=== PATIENT | male | born 1990 | race Caucasian/White ===

== ENCOUNTER 2022-05-20 22:44 | Inpatient (IN) | payer OTHER ==
[2022-05-20 22:57] VITALS: BMI 21.9
[2022-05-21] MEDS ORDERED: morphine SULFATE 4 MG/ML VIAL IVPUSH ONE (00:07)
[2022-05-21] MEDS ORDERED: DICYCLOMINE HCL 10 MG CAPSULE PO ONE (00:07)
[2022-05-21] MEDS ORDERED: morphine CARPU-JECT 4 MG/1 ML DISP.SYRIN IVPUSH ONE (00:07)
[2022-05-21] MEDS ORDERED: ACETAMINOPHEN 1000 MG/100 ML BAG IVPB ONE (00:07)
[2022-05-21] MEDS ORDERED: VANCOMYCIN 1 GM in D5W (PRE-DOCKED) 1,000 MG/250 ML IVPB ONE (00:08)
[2022-05-21] MEDS ORDERED: LACTATED RINGERS SOLUTION 1000 ML INFUS.BAG IV ONE (00:08)
[2022-05-21] MEDS ORDERED: PIPERACILLIN/TAZOB 4.5 GM 4.5 GM in DEXTROSE 5%-WATER 100 ML IVPB ONE (00:08)
[2022-05-21] MEDS ORDERED: morphine SULFATE 4 MG/ML VIAL ONE (00:26)
[2022-05-21] MEDS ORDERED: VANCOMYCIN/WATER FOR INJ (PEG) 1,000 MG/200 ML BAG IVPB ONE (00:27)
[2022-05-21] MEDS ORDERED: PIPERACILLIN/TAZOB 4.5 GM 4.5 GM/100 ML BAG IVPB ONE (00:27)
[2022-05-21 00:50] LABS: HEMATOCRIT 32.1 % (35.4-49); HEMOGLOBIN 10.9 GM/dL (11.7-16.9); MCH 27.8 pg (25.7-33.7); MCHC 33.9 g/dl (32.0-35.9); MEAN CELL VOLUME 82.1 fl (80-96); MEAN PLT VOLUME 7.9 fl (7.5-11.1); PLATELET COUNT 262 10^3/uL (134-434); RDW 15.3 % (11.9-15.9); WHITE BLOOD COUNT 13.4 K/mm3 (4.0-10.0)
[2022-05-21 00:51] LABS: VENOUS BASE EXCESS 4.5 mmol/L (-2-2); VENOUS O2 SATURATION 93.4 % (70-80); VENOUS PCO2 35.9 mmHg (38-52); VENOUS PH 7.505 (7.310-7.410)
[2022-05-21 01:05] LABS: INR 1.38 (0.83-1.09); PROTHROMBIN TIME (PATIENT) 15.9 SEC (9.7-13.0)
[2022-05-21 01:08] LABS: ACTIVATED PTT 29.2 SECONDS (25.2-36.5); CALCIUM 8.4 mg/dL (8.5-10.1)
[2022-05-21 01:09] LABS: ALBUMIN 2.3 g/dl (3.4-5.0); BLOOD UREA NITROGEN 10.8 mg/dL (7-18); MAGNESIUM 1.5 mg/dL (1.8-2.4)
[2022-05-21 01:11] LABS: CREATININE 0.5 mg/dL (0.55-1.3)
[2022-05-21 01:13] LABS: BILIRUBIN,TOTAL 0.7 mg/dL (0.2-1); TOT PROT 7.2 g/dl (6.4-8.2)
[2022-05-21] MEDS ORDERED: KETOROLAC TROMETHAMINE 15 MG/ML VIAL IVPUSH ONE (01:32)
[2022-05-21] MEDS ORDERED: MAGNESIUM SULF 50% (8.12 MEQ/2 ML-1 GM VIAL) IVPB ONE (01:32)
[2022-05-21 01:45] LABS: LACTIC ACID 2.1 mmol/L (0.4-2.0)
[2022-05-21] MEDS ORDERED: MAGNESIUM SULFATE IN WATER 2 GM/50 ML IVPB IVPB ONE (01:53)
[2022-05-21] MEDS ORDERED: KETOROLAC TROMETHAMINE 15 MG/ML VIAL ONE (01:53)
[2022-05-21] MEDS ORDERED: CLINDAMYCIN 900 MG PREMIX IVPB 900 MG/50 ML BAG IVPB ONE ×2 (02:22→03:30)
[2022-05-21] MEDS ORDERED: LORazepam 2 MG/ML SDV VIAL IVPUSH ONE (02:57)
[2022-05-21 04:05] LABS: ANISOCYTOSIS 0; MACROCYTOSIS 0
[2022-05-21] MEDS ORDERED: SODIUM CHLORIDE 0.9% 500 ML INFUS.BAG IV ONE (05:48)
[2022-05-21 09:08] LABS: BASO % 0.1 % (0-2.0); EOS % 0.9 % (0-4.5); HEMATOCRIT 30.8 % (35.4-49); HEMOGLOBIN 10.5 GM/dL (11.7-16.9); LYMPH % 5.2 % (8-40); MCH 28.4 pg (25.7-33.7); MCHC 33.9 g/dl (32.0-35.9); MEAN CELL VOLUME 83.7 fl (80-96); MEAN PLT VOLUME 8.3 fl (7.5-11.1); MONO % 4.5 % (3.8-10.2); NEUT % 89.3 % (42.8-82.8); PLATELET COUNT 248 10^3/uL (134-434); RBC 3.68 M/mm3 (4.00-5.60); RDW 15.4 % (11.9-15.9); WHITE BLOOD COUNT 17.5 K/mm3 (4.0-10.0)
[2022-05-21 09:13] LABS: BLOOD UREA NITROGEN 11.8 mg/dL (7-18); CALCIUM 8.3 mg/dL (8.5-10.1); MAGNESIUM 2.2 mg/dL (1.8-2.4)
[2022-05-21 09:14] LABS: ALBUMIN 1.9 g/dl (3.4-5.0)
[2022-05-21 09:17] LABS: CREATININE 0.5 mg/dL (0.55-1.3)
[2022-05-21 09:18] LABS: BILIRUBIN,TOTAL 0.9 mg/dL (0.2-1); TOT PROT 6.2 g/dl (6.4-8.2)
[2022-05-21] MEDS ORDERED: PIPERACILLIN/TAZOB 3.375 GM 3.375 GM/50 ML BAG IVPB ONE ×3 (13:26→19:36)
[2022-05-21] MEDS: PIPERACILLIN/TAZOB 3.375 GM 3.375 GM in DEXTROSE 5%-WATER - 50 ML IVPB SCH ×2 (13:31→19:40)
[2022-05-21] MEDS: SODIUM CHLORIDE 1,000 ML IV SCH (15:01)
[2022-05-22] MEDS ORDERED: PIPERACILLIN/TAZOB 3.375 GM 3.375 GM/50 ML BAG IVPB ONE (02:14)
[2022-05-22] MEDS: PIPERACILLIN/TAZOB 3.375 GM 3.375 GM in DEXTROSE 5%-WATER - 50 ML IVPB SCH ×3 (02:29→17:18)
[2022-05-22] MEDS: ENOXAPARIN NA (PORCINE) 40 MG/0.4 ML DISP.SYRIN SQ SCH (09:30)
[2022-05-22 10:41] LABS: HEMATOCRIT 32.2 % (35.4-49); MCH 28.4 pg (25.7-33.7); MCHC 34.2 g/dl (32.0-35.9); MEAN CELL VOLUME 83.2 fl (80-96); MEAN PLT VOLUME 8.4 fl (7.5-11.1); PLATELET COUNT 335 10^3/uL (134-434); RBC 3.87 M/mm3 (4.00-5.60); RDW 15.5 % (11.9-15.9); WHITE BLOOD COUNT 18.2 K/mm3 (4.0-10.0)
[2022-05-22 11:18] LABS: ALBUMIN 1.6 g/dl (3.4-5.0); BLOOD UREA NITROGEN 19.6 mg/dL (7-18); CALCIUM 7.8 mg/dL (8.5-10.1); MAGNESIUM 1.9 mg/dL (1.8-2.4)
[2022-05-22 11:21] LABS: CREATININE 0.5 mg/dL (0.55-1.3); PHOSPHOROUS 5.1 mg/dL (2.5-4.9)
[2022-05-22 11:22] LABS: TOT PROT 5.9 g/dl (6.4-8.2)
[2022-05-22 11:23] LABS: BILIRUBIN,TOTAL 0.4 mg/dL (0.2-1)
[2022-05-22 12:10] LABS: ANISOCYTOSIS 0; HELMET CELLS 0; HOWELL-JOLLY BODIES 0; MACROCYTOSIS 0; OVALOCYTE 0; ROULEAU 0; SICKELED CELLS 0; TARGET CELLS 0; TEAR DROP CELLS 0; TOXIC GRANULATION 0
[2022-05-22 13:51] LABS: HIV INTERPRETATION NEGATIVE (NEGATIVE)
[2022-05-22] MEDS: VANCOMYCIN/WATER 1250 MG 1,250 MG/250 ML BAG IVPB SCH (15:00)
[2022-05-22] MEDS: SODIUM CHLORIDE 1,000 ML IV SCH ×2 (15:17→23:27)
[2022-05-23] MEDS: PIPERACILLIN/TAZOB 3.375 GM 3.375 GM in DEXTROSE 5%-WATER - 50 ML IVPB SCH ×2 (03:16→09:44)
[2022-05-23] MEDS ORDERED: ONDANSETRON 4 MG/2 ML VIAL IVPB PRN (08:25)
[2022-05-23] MEDS ORDERED: ACETAMINOPHEN 325 MG TABLET (FP) PO PRN (08:25)
[2022-05-23 09:39] LABS: BASO % 0.2 % (0-2.0); EOS % 0.6 % (0-4.5); HEMATOCRIT 33.5 % (35.4-49); HEMOGLOBIN 11.2 GM/dL (11.7-16.9); LYMPH % 9.8 % (8-40); MCH 27.8 pg (25.7-33.7); MCHC 33.5 g/dl (32.0-35.9); MONO % 5.7 % (3.8-10.2); NEUT % 83.7 % (42.8-82.8); PLATELET COUNT 342 10^3/uL (134-434); RBC 4.03 M/mm3 (4.00-5.60); RDW 15.4 % (11.9-15.9); WHITE BLOOD COUNT 16.4 K/mm3 (4.0-10.0)
[2022-05-23] MEDS: ENOXAPARIN NA (PORCINE) 40 MG/0.4 ML DISP.SYRIN SQ SCH (09:44)
[2022-05-23 09:56] LABS: CALCIUM 7.2 mg/dL (8.5-10.1)
[2022-05-23 09:57] LABS: ALBUMIN 1.6 g/dl (3.4-5.0); BLOOD UREA NITROGEN 17.2 mg/dL (7-18); MAGNESIUM 1.7 mg/dL (1.8-2.4)
[2022-05-23 10:00] LABS: CREATININE 0.6 mg/dL (0.55-1.3); PHOSPHOROUS 3.4 mg/dL (2.5-4.9)
[2022-05-23 10:01] LABS: TOT PROT 5.8 g/dl (6.4-8.2)
[2022-05-23 10:02] LABS: BILIRUBIN,TOTAL 0.4 mg/dL (0.2-1)
[2022-05-23] MEDS ORDERED: MAGNESIUM 1GM/D5W 100ML - 100 ML IVPB IVPB ONE (10:50)
[2022-05-23] MEDS: VANCOMYCIN/WATER 1250 MG 1,250 MG/250 ML BAG IVPB SCH (14:13)
[2022-05-23] MEDS: CEFTRIAXONE 2 GM in DEXTROSE 5%-WATER 100 ML IVPB SCH (17:20)
[2022-05-24 09:32] LABS: BASO % 0.4 % (0-2.0); EOS % 1.3 % (0-4.5); HEMATOCRIT 34.5 % (35.4-49); HEMOGLOBIN 11.3 GM/dL (11.7-16.9); LYMPH % 12.1 % (8-40); MCH 26.7 pg (25.7-33.7); MCHC 32.7 g/dl (32.0-35.9); MEAN CELL VOLUME 81.7 fl (80-96); MEAN PLT VOLUME 7.8 fl (7.5-11.1); MONO % 7.4 % (3.8-10.2); NEUT % 78.8 % (42.8-82.8); PLATELET COUNT 368 10^3/uL (134-434); RBC 4.23 M/mm3 (4.00-5.60); RDW 15.3 % (11.9-15.9); WHITE BLOOD COUNT 15.2 K/mm3 (4.0-10.0)
[2022-05-24] MEDS: CEFTRIAXONE 2 GM in DEXTROSE 5%-WATER 100 ML IVPB SCH (09:51)
[2022-05-24] MEDS: ENOXAPARIN NA (PORCINE) 40 MG/0.4 ML DISP.SYRIN SQ SCH (09:53)
[2022-05-24 10:02] LABS: CALCIUM 7.8 mg/dL (8.5-10.1)
[2022-05-24 10:03] LABS: ALBUMIN 1.7 g/dl (3.4-5.0)
[2022-05-24 10:04] LABS: BLOOD UREA NITROGEN 13.5 mg/dL (7-18)
[2022-05-24 10:06] LABS: CREATININE 0.5 mg/dL (0.55-1.3)
[2022-05-24 10:08] LABS: BILIRUBIN,TOTAL 0.5 mg/dL (0.2-1); TOT PROT 6.2 g/dl (6.4-8.2)
[2022-05-24] MEDS: HYDROmorphone HCl 2 MG/ML VIAL IVPB PRN ×3 (11:34→20:30)
[2022-05-24 11:57] LABS: MAGNESIUM 1.8 mg/dL (1.8-2.4)
[2022-05-24 12:00] LABS: PHOSPHOROUS 3.3 mg/dL (2.5-4.9)
[2022-05-24] MEDS: VANCOMYCIN/WATER 1250 MG 1,250 MG/250 ML BAG IVPB SCH (14:28)
[2022-05-25] MEDS: HYDROmorphone HCl 2 MG/ML VIAL IVPB PRN ×6 (00:03→22:12)
[2022-05-25] MEDS: ENOXAPARIN NA (PORCINE) 40 MG/0.4 ML DISP.SYRIN SQ SCH (09:08)
[2022-05-25] MEDS: CEFTRIAXONE 2 GM in DEXTROSE 5%-WATER 100 ML IVPB SCH (09:08)
[2022-05-25 10:05] LABS: HEMATOCRIT 34.2 % (35.4-49); HEMOGLOBIN 11.7 GM/dL (11.7-16.9); MCH 28.1 pg (25.7-33.7); MCHC 34.3 g/dl (32.0-35.9); MEAN PLT VOLUME 7.9 fl (7.5-11.1); PLATELET COUNT 432 10^3/uL (134-434); RBC 4.17 M/mm3 (4.00-5.60); RDW 14.8 % (11.9-15.9); WHITE BLOOD COUNT 15.5 K/mm3 (4.0-10.0)
[2022-05-25 10:30] LABS: CALCIUM 7.8 mg/dL (8.5-10.1)
[2022-05-25 10:31] LABS: ALBUMIN 1.8 g/dl (3.4-5.0); MAGNESIUM 1.9 mg/dL (1.8-2.4)
[2022-05-25 10:34] LABS: CREATININE 0.5 mg/dL (0.55-1.3); PHOSPHOROUS 3.6 mg/dL (2.5-4.9)
[2022-05-25 10:35] LABS: BILIRUBIN,TOTAL 0.5 mg/dL (0.2-1); TOT PROT 6.7 g/dl (6.4-8.2)
[2022-05-25 12:42] LABS: ANISOCYTOSIS 2+; MACROCYTOSIS 0; TOXIC GRANULATION 2+
[2022-05-25] MEDS: LIDOCAINE 5% TOPICAL PATCH TP PRN (12:42)
[2022-05-25] MEDS: VANCOMYCIN/WATER 1250 MG 1,250 MG/250 ML BAG IVPB SCH (17:15)
[2022-05-25] MEDS ORDERED: VANCOMYCIN/WATER 2 GRAMS 2,000 MG/400 ML PIGGYBACK IVPB ONE (17:45)
[2022-05-25] MEDS: LIDOCAINE PATCH REMOVAL MC SCH (22:13)
[2022-05-26 02:07] LABS: FIBROSIS SCORE. 0.04 (0.00-0.21); HCV ALPHA 2 MACRO CHART 108 mg/dL (110-276); NECRO.INFLAM ACT.SCORE 0.11 (0.00-0.17); NECROINFLAM. ACTIVITY GRADE A0-No activity (.)
[2022-05-26] MEDS: HYDROmorphone HCl 2 MG/ML VIAL IVPB PRN ×3 (02:10→09:04)
[2022-05-26] MEDS: ENOXAPARIN NA (PORCINE) 40 MG/0.4 ML DISP.SYRIN SQ SCH (09:04)
[2022-05-26] MEDS: LIDOCAINE 5% TOPICAL PATCH TP PRN (09:05)
[2022-05-26] MEDS: CEFTRIAXONE 2 GM in DEXTROSE 5%-WATER 100 ML IVPB SCH (09:08)
[2022-05-26 09:58] LABS: EOS % 2.2 % (0-4.5); HEMATOCRIT 34.7 % (35.4-49); HEMOGLOBIN 11.9 GM/dL (11.7-16.9); MCH 28.3 pg (25.7-33.7); MCHC 34.4 g/dl (32.0-35.9); MEAN CELL VOLUME 82.4 fl (80-96); MEAN PLT VOLUME 7.7 fl (7.5-11.1); MONO % 5.6 % (3.8-10.2); NEUT % 78.2 % (42.8-82.8); PLATELET COUNT 460 10^3/uL (134-434); RBC 4.21 M/mm3 (4.00-5.60); RDW 15.4 % (11.9-15.9)
[2022-05-26 10:25] LABS: ALBUMIN 1.9 g/dl (3.4-5.0); BLOOD UREA NITROGEN 12.4 mg/dL (7-18); CALCIUM 7.7 mg/dL (8.5-10.1); MAGNESIUM 1.9 mg/dL (1.8-2.4)
[2022-05-26 10:26] LABS: PHOSPHOROUS 3.1 mg/dL (2.5-4.9)
[2022-05-26 10:27] LABS: BILIRUBIN,TOTAL 0.3 mg/dL (0.2-1)
[2022-05-26 10:28] LABS: CREATININE 0.5 mg/dL (0.55-1.3)
[2022-05-26] MEDS ORDERED: oxyCODONE HCL 10 MG SUSTAINED ACTING TABLET PO PRN (12:33)
[2022-05-26] MEDS ORDERED: methaDONE HCL 10 MG TABLET PO ONE (12:38)
[2022-05-26] MEDS: DOXYCYCLINE HYCLATE 100 MG CAPSULE PO SCH (17:50)
[2022-05-26] MEDS: oxyCODONE HCL 5 MG TABLET PO PRN (20:06)
[2022-05-26] MEDS: LIDOCAINE PATCH REMOVAL MC SCH (21:07)
[2022-05-27] MEDS: oxyCODONE HCL 5 MG TABLET PO PRN ×2 (04:51→10:08)
[2022-05-27 08:54] LABS: BASO % 0.4 % (0-2.0); EOS % 2.5 % (0-4.5); HEMATOCRIT 32.7 % (35.4-49); HEMOGLOBIN 11.2 GM/dL (11.7-16.9); LYMPH % 13.9 % (8-40); MCH 28.6 pg (25.7-33.7); MCHC 34.3 g/dl (32.0-35.9); MEAN CELL VOLUME 83.2 fl (80-96); MEAN PLT VOLUME 7.7 fl (7.5-11.1); MONO % 5.6 % (3.8-10.2); NEUT % 77.6 % (42.8-82.8); PLATELET COUNT 482 10^3/uL (134-434); RBC 3.93 M/mm3 (4.00-5.60); RDW 15.3 % (11.9-15.9); WHITE BLOOD COUNT 15.8 K/mm3 (4.0-10.0)
[2022-05-27 09:14] LABS: MAGNESIUM 1.9 mg/dL (1.8-2.4)
[2022-05-27 09:17] LABS: CREATININE 0.5 mg/dL (0.55-1.3); PHOSPHOROUS 4.4 mg/dL (2.5-4.9)
[2022-05-27 09:18] LABS: BILIRUBIN,TOTAL 0.5 mg/dL (0.2-1); TOT PROT 7.2 g/dl (6.4-8.2)
[2022-05-27] MEDS: ENOXAPARIN NA (PORCINE) 40 MG/0.4 ML DISP.SYRIN SQ SCH (10:06)
[2022-05-27] MEDS: CEFTRIAXONE 2 GM in DEXTROSE 5%-WATER 100 ML IVPB SCH (10:06)
[2022-05-27] MEDS: DOXYCYCLINE HYCLATE 100 MG CAPSULE PO SCH ×2 (10:07→17:52)
[2022-05-27] MEDS ORDERED: oxyCODONE HCL 5 MG TABLET PO PRN (11:47)
[2022-05-27] MEDS ORDERED: LIDOCAINE VISCOUS 2% ORAL/TOP 15 ML UNIT-DOSE CUP ONE (13:23)
[2022-05-27] MEDS ORDERED: POLYETHYLENE GLYCOL (HEALTHYLAX) 3350 17 GM PACKET PO PRN (14:59)
[2022-05-27] MEDS ORDERED: hydrOXYzine PAMOATE 25 MG CAPSULE (FP) PO PRN (14:59)
[2022-05-27] MEDS ORDERED: ONDANSETRON *ODT* 4 MG TABLET SL PRN (14:59)
[2022-05-27] MEDS ORDERED: BISMUTH SUBSALICYLATE 524 MG/30 ML PO PRN (14:59)
[2022-05-27] MEDS ORDERED: NALOXONE HCL 0.4 MG/ML VIAL IM PRN (14:59)
[2022-05-27] MEDS ORDERED: BENZONATATE 200 MG CAPSULE PO PRN (14:59)
[2022-05-27] MEDS ORDERED: LOPERAMIDE HCL 2 MG CAPSULE PO PRN (14:59)
[2022-05-27] MEDS ORDERED: DICYCLOMINE HCL 10 MG CAPSULE PO PRN (14:59)
[2022-05-27] MEDS ORDERED: MAGNESIUM HYDROX 2400MG/30ML ORAL SUSPENSION 30 ML CUP PO PRN (14:59)
[2022-05-27] MEDS ORDERED: ACETAMINOPHEN 325 MG TABLET (FP) PO PRN (14:59)
[2022-05-27] MEDS ORDERED: NALOXONE HCL (KLOXXADO) 8 MG SPRAY NS PRN (14:59)
[2022-05-27] MEDS ORDERED: BENZOCAINE/MENTHOL (CHLORASEPTIC ) LOZENGE MM PRN (14:59)
[2022-05-27] MEDS ORDERED: METHOCARBAMOL 500 MG TABLET PO PRN (14:59)
[2022-05-27] MEDS ORDERED: guaiFENesin 600 MG TABLET.ER (FP) PO PRN (14:59)
[2022-05-27] MEDS: DULoxetine HCL 30 MG CAPSULE.DR PO SCH (15:55)
[2022-05-27] MEDS ORDERED: methaDONE HCL 10 MG TABLET PO ONE (16:00)
[2022-05-27 19:36] LABS: PH,URINE 5.5 (5.0-8.0); URINE APPEARANCE CLEAR; URINE BILIRUBIN NEGATIVE (NEGATIVE); URINE COLOR YELLOW; URINE GLUCOSE (UA) NEGATIVE (NEGATIVE); URINE KETONE NEGATIVE (NEGATIVE); URINE LEUK ESTERASE NEGATIVE (NEGATIVE); URINE NITRITE NEGATIVE (NEGATIVE); URINE PROTEIN NEGATIVE (NEGATIVE); URINE UROBILINOGEN 0.2 mg/dL (0.2-1.0)
[2022-05-27] MEDS: LIDOCAINE PATCH REMOVAL MC SCH (21:12)
[2022-05-27] MEDS: MELATONIN 5 MG TABLETS PO SCH (21:12)
[2022-05-27 23:19] LABS: COCAINE, UR NEGATIVE (NEGATIVE); PHENCYCLIDINE,URINE NEGATIVE (NEGATIVE); URINE AMPHETAMINES NEGATIVE (NEGATIVE)
[2022-05-27 23:20] LABS: URINE BARBITURATES NEGATIVE (NEGATIVE)
[2022-05-27 23:27] LABS: METHADONE, UR POSITIVE (NEGATIVE); OPIATES, URI POSITIVE (NEGATIVE); URINE BENZODIAZEPINES POSITIVE (NEGATIVE)
[2022-05-28] MEDS: IBUPROFEN 600 MG TABLET (FP) PO PRN (06:53)
[2022-05-28] MEDS: MAG HYDROX/AL HYDROX/SIMETH 30 ML UNIT-DOSE CUP PO PRN ×2 (06:57→11:01)
[2022-05-28 08:48] LABS: BASO % 0.7 % (0-2.0); EOS % 3.6 % (0-4.5); HEMATOCRIT 33.5 % (35.4-49); HEMOGLOBIN 11.3 GM/dL (11.7-16.9); LYMPH % 17.1 % (8-40); MCH 28.2 pg (25.7-33.7); MCHC 33.6 g/dl (32.0-35.9); MEAN CELL VOLUME 84.1 fl (80-96); MEAN PLT VOLUME 7.6 fl (7.5-11.1); MONO % 6.6 % (3.8-10.2); PLATELET COUNT 528 10^3/uL (134-434); RBC 3.98 M/mm3 (4.00-5.60); RDW 15.2 % (11.9-15.9); WHITE BLOOD COUNT 10.9 K/mm3 (4.0-10.0)
[2022-05-28 09:13] LABS: CALCIUM 8.2 mg/dL (8.5-10.1)
[2022-05-28 09:14] LABS: ALBUMIN 1.9 g/dl (3.4-5.0); BLOOD UREA NITROGEN 16.1 mg/dL (7-18); MAGNESIUM 1.9 mg/dL (1.8-2.4)
[2022-05-28 09:17] LABS: CREATININE 0.4 mg/dL (0.55-1.3); PHOSPHOROUS 4.2 mg/dL (2.5-4.9)
[2022-05-28 09:19] LABS: BILIRUBIN,TOTAL 0.5 mg/dL (0.2-1); TOT PROT 7.2 g/dl (6.4-8.2)
[2022-05-28] MEDS: DOXYCYCLINE HYCLATE 100 MG CAPSULE PO SCH ×2 (10:13→17:06)
[2022-05-28] MEDS: DULoxetine HCL 30 MG CAPSULE.DR PO SCH (10:13)
[2022-05-28] MEDS: CEFTRIAXONE 2 GM in DEXTROSE 5%-WATER 100 ML IVPB SCH (10:15)
[2022-05-28] MEDS: ENOXAPARIN NA (PORCINE) 40 MG/0.4 ML DISP.SYRIN SQ SCH (10:15)
[2022-05-28] MEDS: IBUPROFEN 400 MG TABLET (FP) PO PRN (18:02)
[2022-05-28] MEDS: LIDOCAINE PATCH REMOVAL MC SCH (21:38)
[2022-05-28] MEDS: MELATONIN 5 MG TABLETS PO SCH (21:38)
[2022-05-29] MEDS: IBUPROFEN 600 MG TABLET (FP) PO PRN (03:13)
[2022-05-29] MEDS: ENOXAPARIN NA (PORCINE) 40 MG/0.4 ML DISP.SYRIN SQ SCH (09:18)
[2022-05-29] MEDS: DULoxetine HCL 30 MG CAPSULE.DR PO SCH (09:18)
[2022-05-29] MEDS: DOXYCYCLINE HYCLATE 100 MG CAPSULE PO SCH ×2 (09:18→17:07)
[2022-05-29] MEDS: CEFTRIAXONE 2 GM in DEXTROSE 5%-WATER 100 ML IVPB SCH (09:19)
[2022-05-29 09:40] LABS: BASO % 0.6 % (0-2.0); EOS % 3.4 % (0-4.5); HEMATOCRIT 30.3 % (35.4-49); HEMOGLOBIN 10.5 GM/dL (11.7-16.9); LYMPH % 19.7 % (8-40); MCH 28.6 pg (25.7-33.7); MCHC 34.6 g/dl (32.0-35.9); MEAN CELL VOLUME 82.7 fl (80-96); MONO % 6.6 % (3.8-10.2); NEUT % 69.7 % (42.8-82.8); PLATELET COUNT 516 10^3/uL (134-434); RBC 3.67 M/mm3 (4.00-5.60); RDW 15.2 % (11.9-15.9); WHITE BLOOD COUNT 9.2 K/mm3 (4.0-10.0)
[2022-05-29] MEDS ORDERED: methaDONE HCL 10 MG TABLET PO ONE (10:00)
[2022-05-29 10:05] LABS: ALBUMIN 1.9 g/dl (3.4-5.0); BLOOD UREA NITROGEN 15.1 mg/dL (7-18)
[2022-05-29 10:07] LABS: MAGNESIUM 1.7 mg/dL (1.8-2.4)
[2022-05-29 10:08] LABS: CREATININE 0.5 mg/dL (0.55-1.3); PHOSPHOROUS 3.7 mg/dL (2.5-4.9)
[2022-05-29 10:09] LABS: TOT PROT 7.2 g/dl (6.4-8.2)
[2022-05-29 10:12] LABS: BILIRUBIN,TOTAL 0.3 mg/dL (0.2-1)
[2022-05-29] MEDS ORDERED: MAGNESIUM OXIDE 400 MG TABLET (FP) PO ONE (13:00)
[2022-05-29] MEDS: MELATONIN 5 MG TABLETS PO SCH (21:12)
[2022-05-29] MEDS: LIDOCAINE PATCH REMOVAL MC SCH (21:12)
[2022-05-30] MEDS: IBUPROFEN 400 MG TABLET (FP) PO PRN (04:55)
[2022-05-30 08:45] LABS: EOS % 2.2 % (0-4.5); HEMATOCRIT 28.3 % (35.4-49); HEMOGLOBIN 9.9 GM/dL (11.7-16.9); LYMPH % 19.4 % (8-40); MCH 28.6 pg (25.7-33.7); MCHC 35.1 g/dl (32.0-35.9); MEAN CELL VOLUME 81.7 fl (80-96); MEAN PLT VOLUME 6.9 fl (7.5-11.1); MONO % 6.6 % (3.8-10.2); NEUT % 70.8 % (42.8-82.8); PLATELET COUNT 577 10^3/uL (134-434); RBC 3.47 M/mm3 (4.00-5.60); RDW 15.1 % (11.9-15.9)
[2022-05-30 08:57] LABS: CALCIUM 8.1 mg/dL (8.5-10.1)
[2022-05-30 09:01] LABS: CREATININE 0.4 mg/dL (0.55-1.3)
[2022-05-30 09:02] LABS: BILIRUBIN,TOTAL 0.5 mg/dL (0.2-1)
[2022-05-30 09:03] LABS: TOT PROT 7.5 g/dl (6.4-8.2)
[2022-05-30] MEDS: DULoxetine HCL 30 MG CAPSULE.DR PO SCH (11:08)
[2022-05-30] MEDS: DOXYCYCLINE HYCLATE 100 MG CAPSULE PO SCH ×2 (11:08→17:50)
[2022-05-30] MEDS: ENOXAPARIN NA (PORCINE) 40 MG/0.4 ML DISP.SYRIN SQ SCH (11:10)
[2022-05-30] MEDS: CEFTRIAXONE 2 GM in DEXTROSE 5%-WATER 100 ML IVPB SCH (11:10)
[2022-05-30] MEDS: LIDOCAINE PATCH REMOVAL MC SCH (21:11)
[2022-05-30] MEDS: MELATONIN 5 MG TABLETS PO SCH (21:58)
[2022-05-31 09:16] LABS: EOS % 3.1 % (0-4.5); HEMATOCRIT 30.4 % (35.4-49); HEMOGLOBIN 10.5 GM/dL (11.7-16.9); LYMPH % 18.1 % (8-40); MCH 28.7 pg (25.7-33.7); MCHC 34.5 g/dl (32.0-35.9); MEAN PLT VOLUME 7.2 fl (7.5-11.1); MONO % 6.2 % (3.8-10.2); NEUT % 71.6 % (42.8-82.8); PLATELET COUNT 565 10^3/uL (134-434); RBC 3.67 M/mm3 (4.00-5.60); RDW 15.4 % (11.9-15.9); WHITE BLOOD COUNT 8.7 K/mm3 (4.0-10.0)
[2022-05-31 09:43] LABS: ALBUMIN 2.1 g/dl (3.4-5.0); BLOOD UREA NITROGEN 14.3 mg/dL (7-18); CALCIUM 8.2 mg/dL (8.5-10.1)
[2022-05-31 09:46] LABS: CREATININE 0.5 mg/dL (0.55-1.3)
[2022-05-31 09:48] LABS: BILIRUBIN,TOTAL 0.4 mg/dL (0.2-1); TOT PROT 7.8 g/dl (6.4-8.2)
[2022-05-31] MEDS ORDERED: methaDONE HCL 10 MG TABLET PO ONE (10:00)
[2022-05-31] MEDS: DULoxetine HCL 30 MG CAPSULE.DR PO SCH (10:21)
[2022-05-31] MEDS: DOXYCYCLINE HYCLATE 100 MG CAPSULE PO SCH ×2 (10:22→17:44)
[2022-05-31] MEDS: CEFTRIAXONE 2 GM in DEXTROSE 5%-WATER 100 ML IVPB SCH (10:22)
[2022-05-31] MEDS: ENOXAPARIN NA (PORCINE) 40 MG/0.4 ML DISP.SYRIN SQ SCH (10:23)
[2022-05-31] MEDS: IBUPROFEN 600 MG TABLET (FP) PO PRN (10:23)
[2022-05-31] MEDS: LIDOCAINE PATCH REMOVAL MC SCH (21:37)
[2022-06-01] MEDS: MELATONIN 5 MG TABLETS PO SCH ×2 (02:12→22:38)
[2022-06-01] MEDS: IBUPROFEN 600 MG TABLET (FP) PO PRN ×2 (10:00→18:55)
[2022-06-01] MEDS: CEFTRIAXONE 2 GM in DEXTROSE 5%-WATER 100 ML IVPB SCH (10:00)
[2022-06-01] MEDS: DULoxetine HCL 30 MG CAPSULE.DR PO SCH (10:00)
[2022-06-01] MEDS: ENOXAPARIN NA (PORCINE) 40 MG/0.4 ML DISP.SYRIN SQ SCH (10:00)
[2022-06-01] MEDS: DOXYCYCLINE HYCLATE 100 MG CAPSULE PO SCH ×2 (10:00→17:28)
[2022-06-01 11:01] LABS: BASO % 1.1 % (0-2.0); EOS % 2.1 % (0-4.5); HEMATOCRIT 29.4 % (35.4-49); HEMOGLOBIN 10.3 GM/dL (11.7-16.9); LYMPH % 16.3 % (8-40); MCHC 34.8 g/dl (32.0-35.9); MEAN CELL VOLUME 83.2 fl (80-96); MEAN PLT VOLUME 7.3 fl (7.5-11.1); MONO % 4.2 % (3.8-10.2); NEUT % 76.3 % (42.8-82.8); PLATELET COUNT 590 10^3/uL (134-434); RBC 3.54 M/mm3 (4.00-5.60); RDW 15.4 % (11.9-15.9); WHITE BLOOD COUNT 9.8 K/mm3 (4.0-10.0)
[2022-06-01 11:14] LABS: BLOOD UREA NITROGEN 13.8 mg/dL (7-18)
[2022-06-01 11:15] LABS: CALCIUM 8.4 mg/dL (8.5-10.1)
[2022-06-01 11:16] LABS: ALBUMIN 2.2 g/dl (3.4-5.0); MAGNESIUM 1.8 mg/dL (1.8-2.4)
[2022-06-01 11:18] LABS: CREATININE 0.5 mg/dL (0.55-1.3)
[2022-06-01 11:19] LABS: PHOSPHOROUS 3.7 mg/dL (2.5-4.9)
[2022-06-01 11:20] LABS: BILIRUBIN,TOTAL 0.4 mg/dL (0.2-1); TOT PROT 8.2 g/dl (6.4-8.2)
[2022-06-01 22:12] VITALS: RESP 18
[2022-06-01] MEDS: LIDOCAINE PATCH REMOVAL MC SCH (22:38)
[2022-06-02 08:53] LABS: EOS % 1.7 % (0-4.5); HEMATOCRIT 29.4 % (35.4-49); HEMOGLOBIN 10.2 GM/dL (11.7-16.9); LYMPH % 17.1 % (8-40); MCH 28.5 pg (25.7-33.7); MCHC 34.6 g/dl (32.0-35.9); MEAN CELL VOLUME 82.5 fl (80-96); MEAN PLT VOLUME 7.1 fl (7.5-11.1); MONO % 5.4 % (3.8-10.2); NEUT % 74.8 % (42.8-82.8); PLATELET COUNT 607 10^3/uL (134-434); RBC 3.56 M/mm3 (4.00-5.60); RDW 15.4 % (11.9-15.9); WHITE BLOOD COUNT 8.7 K/mm3 (4.0-10.0)
[2022-06-02] MEDS: DULoxetine HCL 30 MG CAPSULE.DR PO SCH (09:16)
[2022-06-02] MEDS: ENOXAPARIN NA (PORCINE) 40 MG/0.4 ML DISP.SYRIN SQ SCH (09:16)
[2022-06-02] MEDS: DOXYCYCLINE HYCLATE 100 MG CAPSULE PO SCH (09:16)
[2022-06-02] MEDS: CEFTRIAXONE 2 GM in DEXTROSE 5%-WATER 100 ML IVPB SCH (09:17)
[2022-06-02] MEDS: MELATONIN 5 MG TABLETS PO SCH (21:24)
[2022-06-02] MEDS: LIDOCAINE PATCH REMOVAL MC SCH (21:25)
[2022-06-02] MEDS: IBUPROFEN 600 MG TABLET (FP) PO PRN (21:31)
[2022-06-03 09:23] LABS: BASO % 2.2 % (0-2.0); EOS % 1.5 % (0-4.5); HEMATOCRIT 29.4 % (35.4-49); HEMOGLOBIN 10.1 GM/dL (11.7-16.9); LYMPH % 16.8 % (8-40); MCH 28.5 pg (25.7-33.7); MCHC 34.3 g/dl (32.0-35.9); MEAN CELL VOLUME 83.1 fl (80-96); MEAN PLT VOLUME 6.8 fl (7.5-11.1); MONO % 6.3 % (3.8-10.2); NEUT % 73.2 % (42.8-82.8); PLATELET COUNT 619 10^3/uL (134-434); RBC 3.54 M/mm3 (4.00-5.60); RDW 15.2 % (11.9-15.9); WHITE BLOOD COUNT 8.8 K/mm3 (4.0-10.0)
[2022-06-03] MEDS: BUPRENORPHINE/NALOXONE 2 MG/0.5 MG FILM PACKET SL SCH (10:09)
[2022-06-03] MEDS: CEFTRIAXONE 2 GM in DEXTROSE 5%-WATER 100 ML IVPB SCH (10:09)
[2022-06-03] MEDS: IBUPROFEN 600 MG TABLET (FP) PO PRN (10:10)
[2022-06-03] MEDS: DULoxetine HCL 30 MG CAPSULE.DR PO SCH (10:10)
[2022-06-03] MEDS: ENOXAPARIN NA (PORCINE) 40 MG/0.4 ML DISP.SYRIN SQ SCH (10:10)
[2022-06-03] MEDS ORDERED: BUPRENORPHINE/NALOXONE 2 MG/0.5 MG FILM PACKET SL ONE (17:16)
[2022-06-03] MEDS: MAG HYDROX/AL HYDROX/SIMETH 30 ML UNIT-DOSE CUP PO PRN (17:37)
[2022-06-03] MEDS: MELATONIN 5 MG TABLETS PO SCH (21:10)
[2022-06-03] MEDS: LIDOCAINE PATCH REMOVAL MC SCH (21:11)
[2022-06-04 09:26] LABS: BASO % 1.1 % (0-2.0); EOS % 3.5 % (0-4.5); HEMATOCRIT 27.4 % (35.4-49); HEMOGLOBIN 9.3 GM/dL (11.7-16.9); LYMPH % 26.8 % (8-40); MCH 28.3 pg (25.7-33.7); MCHC 34.1 g/dl (32.0-35.9); MONO % 7.5 % (3.8-10.2); NEUT % 61.1 % (42.8-82.8); PLATELET COUNT 502 10^3/uL (134-434); RDW 15.8 % (11.9-15.9); WHITE BLOOD COUNT 6.5 K/mm3 (4.0-10.0)
[2022-06-04] MEDS: DULoxetine HCL 30 MG CAPSULE.DR PO SCH (10:29)
[2022-06-04] MEDS: CEFTRIAXONE 2 GM in DEXTROSE 5%-WATER 100 ML IVPB SCH (10:29)
[2022-06-04] MEDS: BUPRENORPHINE/NALOXONE 2 MG/0.5 MG FILM PACKET SL SCH (10:29)
[2022-06-04] MEDS: IBUPROFEN 600 MG TABLET (FP) PO PRN (21:26)
[2022-06-04] MEDS: MAG HYDROX/AL HYDROX/SIMETH 30 ML UNIT-DOSE CUP PO PRN (21:26)
[2022-06-04] MEDS: MELATONIN 5 MG TABLETS PO SCH (21:26)
[2022-06-04] MEDS: LIDOCAINE PATCH REMOVAL MC SCH (21:29)
[2022-06-05] MEDS: BUPRENORPHINE/NALOXONE 2 MG/0.5 MG FILM PACKET SL SCH (09:13)
[2022-06-05] MEDS: DULoxetine HCL 30 MG CAPSULE.DR PO SCH (09:13)
[2022-06-05] MEDS: CEFTRIAXONE 2 GM in DEXTROSE 5%-WATER 100 ML IVPB SCH (09:14)
[2022-06-05 10:13] LABS: BASO % 1.4 % (0-2.0); EOS % 2.9 % (0-4.5); HEMOGLOBIN 10.7 GM/dL (11.7-16.9); LYMPH % 23.3 % (8-40); MCH 28.9 pg (25.7-33.7); MCHC 34.6 g/dl (32.0-35.9); MEAN CELL VOLUME 83.4 fl (80-96); MEAN PLT VOLUME 6.9 fl (7.5-11.1); NEUT % 65.4 % (42.8-82.8); PLATELET COUNT 443 10^3/uL (134-434); RBC 3.71 M/mm3 (4.00-5.60); RDW 15.8 % (11.9-15.9); WHITE BLOOD COUNT 5.7 K/mm3 (4.0-10.0)
[2022-06-05] MEDS: IBUPROFEN 600 MG TABLET (FP) PO PRN (16:37)
[2022-06-05] MEDS ORDERED: BUPRENORPHINE/NALOXONE 2 MG/0.5 MG FILM PACKET SL ONE (18:51)
[2022-06-05] MEDS: MELATONIN 5 MG TABLETS PO SCH (22:04)
[2022-06-05] MEDS: LIDOCAINE PATCH REMOVAL MC SCH (22:05)
[2022-06-06 09:34] LABS: BASO % 0.4 % (0-2.0); EOS % 2.5 % (0-4.5); HEMATOCRIT 26.2 % (35.4-49); HEMOGLOBIN 9.4 GM/dL (11.7-16.9); LYMPH % 24.5 % (8-40); MCH 29.5 pg (25.7-33.7); MCHC 35.9 g/dl (32.0-35.9); MEAN CELL VOLUME 82.3 fl (80-96); MEAN PLT VOLUME 7.4 fl (7.5-11.1); NEUT % 66.6 % (42.8-82.8); PLATELET COUNT 433 10^3/uL (134-434); RBC 3.18 M/mm3 (4.00-5.60); RDW 15.5 % (11.9-15.9); WHITE BLOOD COUNT 6.7 K/mm3 (4.0-10.0)
[2022-06-06] MEDS ORDERED: BUPRENORPHINE/NALOXONE 2 MG/0.5 MG FILM PACKET SL SCH ×2 (10:00→11:41)
[2022-06-06] MEDS ORDERED: BUPRENORPHINE/NALOXONE 8 MG/2 MG FILM PACKET SL SCH (10:00)
[2022-06-06] MEDS: DULoxetine HCL 30 MG CAPSULE.DR PO SCH (10:22)
[2022-06-06] MEDS: IBUPROFEN 600 MG TABLET (FP) PO PRN (10:24)
[2022-06-06] MEDS ORDERED: BUPRENORPHINE/NALOXONE 2 MG/0.5 MG FILM PACKET SL ONE (14:38)
[2022-06-06] MEDS: MELATONIN 5 MG TABLETS PO SCH (21:56)
[2022-06-06] MEDS: LIDOCAINE PATCH REMOVAL MC SCH (21:57)
[2022-06-07] MEDS ORDERED: BUPRENORPHINE/NALOXONE 2 MG/0.5 MG FILM PACKET SL SCH (10:00)
[2022-06-07] MEDS: DULoxetine HCL 30 MG CAPSULE.DR PO SCH (10:04)
[2022-06-07 14:05] VITALS: BP 125/74; PULSE 94; TEMP 98
== END 2022-06-07 12:20 | disposition other institution (70) | DRG 720 ==
LOC: JER 22:44 → JERBED 05-21 01:11 → J6S 05-22 03:35
PROVIDERS: ADMIT Internal Medicine
PROC: B246ZZ4 Ultrasonography of Right and Left Heart, Transesophageal (ICD-10-PCS; principal; 2022-05-27 13:00)
DX: A40.0 Sepsis due to streptococcus, group A (principal); I26.90 Septic pulmonary embolism without acute cor pulmonale; E87.1 Hypo-osmolality and hyponatremia; J18.9 Pneumonia, unspecified organism; F11.23 Opioid dependence with withdrawal; F17.210 Nicotine dependence, cigarettes, uncomplicated; L03.113 Cellulitis of right upper limb; L03.114 Cellulitis of left upper limb; M94.0 Chondrocostal junction syndrome [Tietze]; E88.09 Other disorders of plasma-protein metabolism, not elsewhere classified; Z59.00 Homelessness unspecified
CPT/HCPCS: 0241U-QW; 36415; 71046-TC-FY; 71260-TC; 72070-TC-FY; 72132-TC; 73201-TC-RT; 74177-TC; 80053; 80307; 81003; 82172; 82803; 82977; 83010; 83605; 83690; 83735; 83883; 83935; 84100; 84300; 84443; 84460; 84484; 85025; 85610; 85651; 85730; 86140; 86705; 86803; 86850; 86900; 86901; 87040; 87077; 87081; 87186; 87340; 87389; 87517; 87522; 93005; 93010; 93306-TC; 93312; 93325; 99285-25; G0480; Q9967

== ENCOUNTER 2022-06-07 14:05 | Inpatient (IN) | payer OTHER ==
[2022-06-07 15:19] VITALS: BMI 22.2
[2022-06-07] MEDS ORDERED: NALOXONE HCL (KLOXXADO) 8 MG SPRAY NS PRN (17:54)
[2022-06-07] MEDS ORDERED: NALOXONE HCL 0.4 MG/ML VIAL IVPUSH PRN (17:54)
[2022-06-07] MEDS ORDERED: guaiFENesin 600 MG TABLET.ER (FP) PO PRN (17:54)
[2022-06-07] MEDS ORDERED: POLYETHYLENE GLYCOL (HEALTHYLAX) 3350 17 GM PACKET PO PRN (17:54)
[2022-06-07] MEDS ORDERED: P-EPHED 60MG/TRIPROLIDI 2.5MG TABLET PO PRN (17:54)
[2022-06-07] MEDS ORDERED: BENZONATATE 200 MG CAPSULE PO PRN (17:54)
[2022-06-07] MEDS ORDERED: MAGNESIUM HYDROX 2400MG/30ML ORAL SUSPENSION 30 ML CUP PO PRN (17:54)
[2022-06-07] MEDS ORDERED: MELATONIN 5 MG TABLETS PO PRN ×2 (17:54→17:59)
[2022-06-07] MEDS ORDERED: LOPERAMIDE HCL 2 MG CAPSULE PO PRN (17:54)
[2022-06-07] MEDS: VITAMINS A AND D TOPICAL OINTMENT 60 GM TUBE TP SCH (22:39)
[2022-06-07] MEDS: THIAMINE HCL 100 MG TABLET (FP) PO SCH (22:46)
[2022-06-07] MEDS: LIDOCAINE PATCH REMOVAL MC SCH (22:47)
[2022-06-08] MEDS: VITAMINS A AND D TOPICAL OINTMENT 60 GM TUBE TP SCH ×4 (02:02→18:44)
[2022-06-08] MEDS: IBUPROFEN 400 MG TABLET (FP) PO PRN ×2 (06:10→21:21)
[2022-06-08] MEDS: MAG HYDROX/AL HYDROX/SIMETH 30 ML UNIT-DOSE CUP PO PRN (06:29)
[2022-06-08] MEDS: BUPRENORPHINE/NALOXONE 8 MG/2 MG FILM PACKET SL SCH (09:50)
[2022-06-08] MEDS: LIDOCAINE 5% TOPICAL PATCH TP SCH (09:50)
[2022-06-08] MEDS: DULoxetine HCL 30 MG CAPSULE.DR PO SCH (09:50)
[2022-06-08] MEDS: PRENATAL VITAMINS W/ FOLIC ACID TABLET (FP) PO SCH (09:50)
[2022-06-08] MEDS: IBUPROFEN 600 MG TABLET (FP) PO PRN (15:03)
[2022-06-08] MEDS: METHOCARBAMOL 500 MG TABLET PO PRN (15:03)
[2022-06-08] MEDS ORDERED: ONDANSETRON *ODT* 4 MG TABLET SL PRN (15:21)
[2022-06-08] MEDS: THIAMINE HCL 100 MG TABLET (FP) PO SCH (21:20)
[2022-06-08] MEDS: LIDOCAINE PATCH REMOVAL MC SCH (21:21)
[2022-06-09] MEDS: VITAMINS A AND D TOPICAL OINTMENT 60 GM TUBE TP SCH ×4 (00:20→18:50)
[2022-06-09] MEDS: IBUPROFEN 400 MG TABLET (FP) PO PRN ×2 (06:22→12:46)
[2022-06-09] MEDS: PRENATAL VITAMINS W/ FOLIC ACID TABLET (FP) PO SCH (10:09)
[2022-06-09] MEDS: LIDOCAINE 5% TOPICAL PATCH TP SCH (10:10)
[2022-06-09] MEDS: BUPRENORPHINE/NALOXONE 8 MG/2 MG FILM PACKET SL SCH (10:12)
[2022-06-09] MEDS: METHOCARBAMOL 500 MG TABLET PO PRN (10:13)
[2022-06-09] MEDS ORDERED: hydrOXYzine PAMOATE 25 MG CAPSULE (FP) PO PRN (11:43)
[2022-06-09] MEDS: DULoxetine HCL 30 MG CAPSULE.DR PO SCH ×2 (13:51→14:32)
[2022-06-09] MEDS: ACETAMINOPHEN 325 MG TABLET (FP) PO PRN ×2 (15:56→21:09)
[2022-06-09] MEDS: THIAMINE HCL 100 MG TABLET (FP) PO SCH (21:09)
[2022-06-09] MEDS: SUVOREXANT 10 MG TABLET PO PRN (21:09)
[2022-06-09] MEDS: LIDOCAINE PATCH REMOVAL MC SCH (21:10)
[2022-06-10] MEDS: VITAMINS A AND D TOPICAL OINTMENT 60 GM TUBE TP SCH ×4 (00:20→17:28)
[2022-06-10] MEDS: ACETAMINOPHEN 325 MG TABLET (FP) PO PRN ×3 (06:30→21:05)
[2022-06-10] MEDS: BUPRENORPHINE/NALOXONE 8 MG/2 MG FILM PACKET SL SCH (10:05)
[2022-06-10] MEDS: DULoxetine HCL 30 MG CAPSULE.DR PO SCH (10:05)
[2022-06-10] MEDS: LIDOCAINE 5% TOPICAL PATCH TP SCH (10:05)
[2022-06-10] MEDS: PRENATAL VITAMINS W/ FOLIC ACID TABLET (FP) PO SCH (10:05)
[2022-06-10] MEDS: hydrOXYzine PAMOATE 25 MG CAPSULE (FP) PO PRN ×2 (10:06→21:04)
[2022-06-10] MEDS: METHOCARBAMOL 500 MG TABLET PO PRN (10:07)
[2022-06-10] MEDS: BACLOFEN 10 MG TABLET (FP) PO PRN (21:03)
[2022-06-10] MEDS: SUVOREXANT 10 MG TABLET PO PRN (21:04)
[2022-06-10] MEDS: THIAMINE HCL 100 MG TABLET (FP) PO SCH (21:04)
[2022-06-10] MEDS: LIDOCAINE PATCH REMOVAL MC SCH (21:39)
[2022-06-11] MEDS: VITAMINS A AND D TOPICAL OINTMENT 60 GM TUBE TP SCH ×4 (00:25→19:12)
[2022-06-11] MEDS: ACETAMINOPHEN 325 MG TABLET (FP) PO PRN ×2 (06:14→14:35)
[2022-06-11] MEDS ORDERED: RIMEGEPANT SULFATE 75 MG TAB.RAPDIS SL ONE (10:00)
[2022-06-11] MEDS: BUPRENORPHINE/NALOXONE 8 MG/2 MG FILM PACKET SL SCH (10:10)
[2022-06-11] MEDS: DULoxetine HCL 30 MG CAPSULE.DR PO SCH (10:10)
[2022-06-11] MEDS: PRENATAL VITAMINS W/ FOLIC ACID TABLET (FP) PO SCH (10:10)
[2022-06-11] MEDS: LIDOCAINE 5% TOPICAL PATCH TP SCH (10:11)
[2022-06-11] MEDS: METHOCARBAMOL 500 MG TABLET PO PRN ×2 (10:12→21:13)
[2022-06-11] MEDS: hydrOXYzine PAMOATE 25 MG CAPSULE (FP) PO PRN ×2 (10:12→21:13)
[2022-06-11] MEDS: THIAMINE HCL 100 MG TABLET (FP) PO SCH (21:13)
[2022-06-11] MEDS: SUVOREXANT 10 MG TABLET PO PRN (21:14)
[2022-06-11] MEDS: LIDOCAINE PATCH REMOVAL MC SCH (21:14)
[2022-06-12] MEDS: VITAMINS A AND D TOPICAL OINTMENT 60 GM TUBE TP SCH ×4 (00:20→18:34)
[2022-06-12] MEDS: PRENATAL VITAMINS W/ FOLIC ACID TABLET (FP) PO SCH (09:53)
[2022-06-12] MEDS: BUPRENORPHINE/NALOXONE 8 MG/2 MG FILM PACKET SL SCH (09:53)
[2022-06-12] MEDS: LIDOCAINE 5% TOPICAL PATCH TP SCH (09:54)
[2022-06-12] MEDS: DULoxetine HCL 30 MG CAPSULE.DR PO SCH (09:54)
[2022-06-12] MEDS: hydrOXYzine PAMOATE 25 MG CAPSULE (FP) PO PRN ×2 (09:54→21:21)
[2022-06-12 10:31] LABS: CALCIUM 9.1 mg/dL (8.5-10.1)
[2022-06-12 10:32] LABS: ALBUMIN 2.5 g/dl (3.4-5.0); BLOOD UREA NITROGEN 10.7 mg/dL (7-18)
[2022-06-12 10:35] LABS: CREATININE 0.6 mg/dL (0.55-1.3)
[2022-06-12 10:36] LABS: BILIRUBIN,TOTAL 0.3 mg/dL (0.2-1); TOT PROT 8.6 g/dl (6.4-8.2)
[2022-06-12] MEDS: LACTULOSE 20 GM/30 ML UDC (FOR ORAL USE ONLY) PO SCH ×2 (13:45→21:21)
[2022-06-12] MEDS: IBUPROFEN 400 MG TABLET (FP) PO PRN (18:34)
[2022-06-12] MEDS: MAG HYDROX/AL HYDROX/SIMETH 30 ML UNIT-DOSE CUP PO PRN (18:34)
[2022-06-12] MEDS: THIAMINE HCL 100 MG TABLET (FP) PO SCH (21:21)
[2022-06-12] MEDS: LIDOCAINE PATCH REMOVAL MC SCH (21:22)
[2022-06-12] MEDS: SUVOREXANT 10 MG TABLET PO PRN (21:22)
[2022-06-13] MEDS: VITAMINS A AND D TOPICAL OINTMENT 60 GM TUBE TP SCH ×4 (00:20→17:00)
[2022-06-13] MEDS: IBUPROFEN 400 MG TABLET (FP) PO PRN (06:33)
[2022-06-13] MEDS: LACTULOSE 20 GM/30 ML UDC (FOR ORAL USE ONLY) PO SCH ×3 (06:33→21:20)
[2022-06-13] MEDS: BUPRENORPHINE/NALOXONE 8 MG/2 MG FILM PACKET SL SCH (10:16)
[2022-06-13] MEDS: DULoxetine HCL 30 MG CAPSULE.DR PO SCH (10:16)
[2022-06-13] MEDS: LIDOCAINE 5% TOPICAL PATCH TP SCH (10:16)
[2022-06-13] MEDS: PRENATAL VITAMINS W/ FOLIC ACID TABLET (FP) PO SCH (10:16)
[2022-06-13] MEDS: METHOCARBAMOL 500 MG TABLET PO PRN (10:17)
[2022-06-13] MEDS: hydrOXYzine PAMOATE 25 MG CAPSULE (FP) PO PRN (10:17)
[2022-06-13] MEDS: COLLOIDAL OATMEAL 1 BAR EACH TP PRN (10:29)
[2022-06-13] MEDS ORDERED: NICOTINE 10 MG CARTRIDGE (INHALER) IH SCH (11:45)
[2022-06-13] MEDS ORDERED: NICOTINE POLACRILEX 2 MG GUM BUC PRN (11:48)
[2022-06-13] MEDS: NICOTINE 14 MG/24 HOURS TOPICAL PATCH TD PRN (12:07)
[2022-06-13] MEDS: NICOTINE 10 MG CARTRIDGE (INHALER) IH PRN (12:07)
[2022-06-13] MEDS: IBUPROFEN 600 MG TABLET (FP) PO PRN (15:35)
[2022-06-13] MEDS: THIAMINE HCL 100 MG TABLET (FP) PO SCH (21:20)
[2022-06-13] MEDS: BACLOFEN 10 MG TABLET (FP) PO PRN (21:21)
[2022-06-13] MEDS: LIDOCAINE PATCH REMOVAL MC SCH (21:21)
[2022-06-13] MEDS: SUVOREXANT 10 MG TABLET PO PRN (21:21)
[2022-06-13] MEDS ORDERED: SUVOREXANT 10 MG TABLET PO PRN (22:00)
[2022-06-14] MEDS: VITAMINS A AND D TOPICAL OINTMENT 60 GM TUBE TP SCH ×4 (01:32→18:34)
[2022-06-14] MEDS: LACTULOSE 20 GM/30 ML UDC (FOR ORAL USE ONLY) PO SCH ×3 (06:20→21:35)
[2022-06-14] MEDS: PRENATAL VITAMINS W/ FOLIC ACID TABLET (FP) PO SCH (09:52)
[2022-06-14] MEDS: LIDOCAINE 5% TOPICAL PATCH TP SCH (09:52)
[2022-06-14] MEDS: DULoxetine HCL 30 MG CAPSULE.DR PO SCH (09:52)
[2022-06-14] MEDS: BACITRACIN 0.9 GM PACKET TP SCH ×2 (09:52→21:35)
[2022-06-14] MEDS: hydrOXYzine PAMOATE 25 MG CAPSULE (FP) PO PRN ×2 (09:53→21:36)
[2022-06-14] MEDS: BACLOFEN 10 MG TABLET (FP) PO PRN ×2 (09:53→21:35)
[2022-06-14] MEDS: NICOTINE 10 MG CARTRIDGE (INHALER) IH PRN (09:54)
[2022-06-14] MEDS: BUPRENORPHINE/NALOXONE 8 MG/2 MG FILM PACKET SL SCH ×2 (09:59→21:35)
[2022-06-14] MEDS: NICOTINE 14 MG/24 HOURS TOPICAL PATCH TD PRN (09:59)
[2022-06-14] MEDS: IBUPROFEN 600 MG TABLET (FP) PO PRN (12:08)
[2022-06-14] MEDS: MAG HYDROX/AL HYDROX/SIMETH 30 ML UNIT-DOSE CUP PO PRN (18:34)
[2022-06-14] MEDS: IBUPROFEN 400 MG TABLET (FP) PO PRN (19:07)
[2022-06-14] MEDS: THIAMINE HCL 100 MG TABLET (FP) PO SCH (21:35)
[2022-06-14] MEDS: LIDOCAINE PATCH REMOVAL MC SCH (21:35)
[2022-06-14] MEDS: SUVOREXANT 10 MG TABLET PO PRN (21:36)
[2022-06-15] MEDS: VITAMINS A AND D TOPICAL OINTMENT 60 GM TUBE TP SCH ×4 (00:20→18:30)
[2022-06-15] MEDS: LACTULOSE 20 GM/30 ML UDC (FOR ORAL USE ONLY) PO SCH ×3 (06:39→21:04)
[2022-06-15] MEDS: IBUPROFEN 600 MG TABLET (FP) PO PRN ×2 (06:39→15:12)
[2022-06-15] MEDS: LIDOCAINE 5% TOPICAL PATCH TP SCH (10:14)
[2022-06-15] MEDS: BUPRENORPHINE/NALOXONE 8 MG/2 MG FILM PACKET SL SCH ×2 (10:14→21:06)
[2022-06-15] MEDS: DULoxetine HCL 30 MG CAPSULE.DR PO SCH (10:14)
[2022-06-15] MEDS: PRENATAL VITAMINS W/ FOLIC ACID TABLET (FP) PO SCH (10:14)
[2022-06-15] MEDS: BACITRACIN 0.9 GM PACKET TP SCH ×2 (10:14→21:08)
[2022-06-15] MEDS: hydrOXYzine PAMOATE 50 MG CAPSULE (FP) PO PRN ×2 (10:15→21:06)
[2022-06-15] MEDS: NICOTINE 10 MG CARTRIDGE (INHALER) IH PRN (10:16)
[2022-06-15] MEDS: NICOTINE 14 MG/24 HOURS TOPICAL PATCH TD PRN (10:18)
[2022-06-15] MEDS: BACLOFEN 10 MG TABLET (FP) PO PRN (21:04)
[2022-06-15] MEDS: THIAMINE HCL 100 MG TABLET (FP) PO SCH (21:04)
[2022-06-15] MEDS: SUVOREXANT 10 MG TABLET PO PRN (21:05)
[2022-06-15] MEDS: LIDOCAINE PATCH REMOVAL MC SCH (21:08)
[2022-06-15] MEDS: MAG HYDROX/AL HYDROX/SIMETH 30 ML UNIT-DOSE CUP PO PRN (22:43)
[2022-06-16] MEDS: VITAMINS A AND D TOPICAL OINTMENT 60 GM TUBE TP SCH ×4 (00:30→18:35)
[2022-06-16] MEDS: LACTULOSE 20 GM/30 ML UDC (FOR ORAL USE ONLY) PO SCH ×3 (06:10→21:03)
[2022-06-16] MEDS: PRENATAL VITAMINS W/ FOLIC ACID TABLET (FP) PO SCH (09:32)
[2022-06-16] MEDS: DULoxetine HCL 30 MG CAPSULE.DR PO SCH (09:32)
[2022-06-16] MEDS: BACITRACIN 0.9 GM PACKET TP SCH ×2 (09:32→21:05)
[2022-06-16] MEDS: LIDOCAINE 5% TOPICAL PATCH TP SCH (09:32)
[2022-06-16] MEDS: BUPRENORPHINE/NALOXONE 8 MG/2 MG FILM PACKET SL SCH ×2 (09:32→21:03)
[2022-06-16] MEDS: hydrOXYzine PAMOATE 50 MG CAPSULE (FP) PO PRN ×2 (09:33→21:03)
[2022-06-16] MEDS: NICOTINE 14 MG/24 HOURS TOPICAL PATCH TD PRN (09:35)
[2022-06-16] MEDS: NICOTINE 10 MG CARTRIDGE (INHALER) IH PRN (09:35)
[2022-06-16] MEDS: MAG HYDROX/AL HYDROX/SIMETH 30 ML UNIT-DOSE CUP PO PRN (12:13)
[2022-06-16] MEDS: IBUPROFEN 600 MG TABLET (FP) PO PRN (13:52)
[2022-06-16] MEDS: BACLOFEN 10 MG TABLET (FP) PO PRN (21:01)
[2022-06-16] MEDS: SUVOREXANT 10 MG TABLET PO PRN (21:02)
[2022-06-16] MEDS: IBUPROFEN 400 MG TABLET (FP) PO PRN (21:03)
[2022-06-16] MEDS: THIAMINE HCL 100 MG TABLET (FP) PO SCH (21:03)
[2022-06-16] MEDS: LIDOCAINE PATCH REMOVAL MC SCH (21:05)
[2022-06-17] MEDS: VITAMINS A AND D TOPICAL OINTMENT 60 GM TUBE TP SCH ×4 (01:25→18:35)
[2022-06-17] MEDS: LACTULOSE 20 GM/30 ML UDC (FOR ORAL USE ONLY) PO SCH ×3 (06:02→21:06)
[2022-06-17] MEDS: IBUPROFEN 600 MG TABLET (FP) PO PRN ×2 (06:04→13:22)
[2022-06-17] MEDS: BACITRACIN 0.9 GM PACKET TP SCH ×2 (09:52→21:09)
[2022-06-17] MEDS: PRENATAL VITAMINS W/ FOLIC ACID TABLET (FP) PO SCH (09:52)
[2022-06-17] MEDS: BUPRENORPHINE/NALOXONE 8 MG/2 MG FILM PACKET SL SCH ×2 (09:52→21:08)
[2022-06-17] MEDS: LIDOCAINE 5% TOPICAL PATCH TP SCH (09:52)
[2022-06-17] MEDS: DULoxetine HCL 30 MG CAPSULE.DR PO SCH (09:52)
[2022-06-17] MEDS: BACLOFEN 10 MG TABLET (FP) PO PRN ×2 (09:53→21:06)
[2022-06-17] MEDS: hydrOXYzine PAMOATE 50 MG CAPSULE (FP) PO PRN ×2 (09:53→21:06)
[2022-06-17] MEDS: NICOTINE 10 MG CARTRIDGE (INHALER) IH PRN ×2 (09:55→16:38)
[2022-06-17] MEDS: NICOTINE 14 MG/24 HOURS TOPICAL PATCH TD PRN (10:12)
[2022-06-17] MEDS: MAG HYDROX/AL HYDROX/SIMETH 30 ML UNIT-DOSE CUP PO PRN (13:22)
[2022-06-17] MEDS: SUVOREXANT 10 MG TABLET PO PRN (21:06)
[2022-06-17] MEDS: THIAMINE HCL 100 MG TABLET (FP) PO SCH (21:06)
[2022-06-17] MEDS: LIDOCAINE PATCH REMOVAL MC SCH (21:09)
[2022-06-18] MEDS: VITAMINS A AND D TOPICAL OINTMENT 60 GM TUBE TP SCH ×4 (00:40→18:57)
[2022-06-18] MEDS: LACTULOSE 20 GM/30 ML UDC (FOR ORAL USE ONLY) PO SCH ×3 (06:24→21:09)
[2022-06-18] MEDS: IBUPROFEN 400 MG TABLET (FP) PO PRN (06:25)
[2022-06-18] MEDS: hydrOXYzine PAMOATE 50 MG CAPSULE (FP) PO PRN ×3 (06:25→21:08)
[2022-06-18] MEDS: PRENATAL VITAMINS W/ FOLIC ACID TABLET (FP) PO SCH (09:40)
[2022-06-18] MEDS: BACITRACIN 0.9 GM PACKET TP SCH ×2 (09:40→21:11)
[2022-06-18] MEDS: DULoxetine HCL 30 MG CAPSULE.DR PO SCH (09:40)
[2022-06-18] MEDS: BUPRENORPHINE/NALOXONE 8 MG/2 MG FILM PACKET SL SCH ×2 (09:41→21:10)
[2022-06-18] MEDS: LIDOCAINE 5% TOPICAL PATCH TP SCH (09:41)
[2022-06-18] MEDS: NICOTINE 10 MG CARTRIDGE (INHALER) IH PRN ×2 (09:43→14:41)
[2022-06-18] MEDS: NICOTINE 14 MG/24 HOURS TOPICAL PATCH TD PRN (09:46)
[2022-06-18] MEDS: busPIRone HCL 5 MG TABLET PO SCH ×2 (10:32→21:08)
[2022-06-18] MEDS: MAG HYDROX/AL HYDROX/SIMETH 30 ML UNIT-DOSE CUP PO PRN (10:34)
[2022-06-18] MEDS: BACLOFEN 10 MG TABLET (FP) PO PRN (21:08)
[2022-06-18] MEDS: THIAMINE HCL 100 MG TABLET (FP) PO SCH (21:09)
[2022-06-18] MEDS: SUVOREXANT 15 MG TABLET PO PRN (21:10)
[2022-06-18] MEDS: LIDOCAINE PATCH REMOVAL MC SCH (21:11)
[2022-06-19] MEDS: VITAMINS A AND D TOPICAL OINTMENT 60 GM TUBE TP SCH ×4 (00:30→17:25)
[2022-06-19] MEDS: LACTULOSE 20 GM/30 ML UDC (FOR ORAL USE ONLY) PO SCH ×3 (06:05→21:15)
[2022-06-19] MEDS: IBUPROFEN 600 MG TABLET (FP) PO PRN ×2 (06:05→18:15)
[2022-06-19] MEDS: PRENATAL VITAMINS W/ FOLIC ACID TABLET (FP) PO SCH (10:04)
[2022-06-19] MEDS: busPIRone HCL 5 MG TABLET PO SCH ×2 (10:05→21:15)
[2022-06-19] MEDS: DULoxetine HCL 30 MG CAPSULE.DR PO SCH (10:05)
[2022-06-19] MEDS: LIDOCAINE 5% TOPICAL PATCH TP SCH (10:06)
[2022-06-19] MEDS: BACITRACIN 0.9 GM PACKET TP SCH ×2 (10:06→21:15)
[2022-06-19] MEDS: BUPRENORPHINE/NALOXONE 8 MG/2 MG FILM PACKET SL SCH ×2 (10:06→21:15)
[2022-06-19] MEDS: NICOTINE 10 MG CARTRIDGE (INHALER) IH PRN ×2 (10:07→21:18)
[2022-06-19] MEDS: hydrOXYzine PAMOATE 50 MG CAPSULE (FP) PO PRN ×2 (10:07→21:15)
[2022-06-19] MEDS: NICOTINE 14 MG/24 HOURS TOPICAL PATCH TD PRN (10:08)
[2022-06-19] MEDS: BACLOFEN 10 MG TABLET (FP) PO PRN (18:15)
[2022-06-19] MEDS: LIDOCAINE PATCH REMOVAL MC SCH (21:15)
[2022-06-19] MEDS: SUVOREXANT 15 MG TABLET PO PRN (21:16)
[2022-06-19] MEDS: THIAMINE HCL 100 MG TABLET (FP) PO SCH (22:26)
[2022-06-20] MEDS: VITAMINS A AND D TOPICAL OINTMENT 60 GM TUBE TP SCH ×4 (05:28→18:25)
[2022-06-20] MEDS: LACTULOSE 20 GM/30 ML UDC (FOR ORAL USE ONLY) PO SCH ×2 (06:35→14:07)
[2022-06-20] MEDS: PRENATAL VITAMINS W/ FOLIC ACID TABLET (FP) PO SCH (10:23)
[2022-06-20] MEDS: NICOTINE 14 MG/24 HOURS TOPICAL PATCH TD PRN (10:24)
[2022-06-20] MEDS: NICOTINE 10 MG CARTRIDGE (INHALER) IH PRN (10:24)
[2022-06-20] MEDS: BACLOFEN 10 MG TABLET (FP) PO PRN (10:24)
[2022-06-20] MEDS: hydrOXYzine PAMOATE 50 MG CAPSULE (FP) PO PRN (10:24)
[2022-06-20] MEDS: LIDOCAINE 5% TOPICAL PATCH TP SCH (10:25)
[2022-06-20] MEDS: BUPRENORPHINE/NALOXONE 8 MG/2 MG FILM PACKET SL SCH ×2 (10:25→21:53)
[2022-06-20] MEDS: busPIRone HCL 5 MG TABLET PO SCH ×2 (10:25→21:54)
[2022-06-20] MEDS: DULoxetine HCL 30 MG CAPSULE.DR PO SCH (10:25)
[2022-06-20] MEDS: BACITRACIN 0.9 GM PACKET TP SCH ×2 (10:25→21:58)
[2022-06-20] MEDS: MAG HYDROX/AL HYDROX/SIMETH 30 ML UNIT-DOSE CUP PO PRN ×2 (10:28→21:58)
[2022-06-20] MEDS: IBUPROFEN 600 MG TABLET (FP) PO PRN (10:42)
[2022-06-20] MEDS: THIAMINE HCL 100 MG TABLET (FP) PO SCH (21:54)
[2022-06-20] MEDS: LIDOCAINE PATCH REMOVAL MC SCH (21:55)
[2022-06-20] MEDS: SUVOREXANT 15 MG TABLET PO PRN (21:57)
[2022-06-21] MEDS: MAG HYDROX/AL HYDROX/SIMETH 30 ML UNIT-DOSE CUP PO PRN ×2 (06:07→17:49)
[2022-06-21] MEDS: VITAMINS A AND D TOPICAL OINTMENT 60 GM TUBE TP SCH ×3 (06:55→17:16)
[2022-06-21] MEDS: busPIRone HCL 5 MG TABLET PO SCH ×2 (09:36→21:22)
[2022-06-21] MEDS: PRENATAL VITAMINS W/ FOLIC ACID TABLET (FP) PO SCH (09:36)
[2022-06-21] MEDS: BUPRENORPHINE/NALOXONE 8 MG/2 MG FILM PACKET SL SCH ×2 (09:36→21:20)
[2022-06-21] MEDS: hydrOXYzine PAMOATE 50 MG CAPSULE (FP) PO PRN ×2 (09:36→21:20)
[2022-06-21] MEDS: DULoxetine HCL 30 MG CAPSULE.DR PO SCH (09:37)
[2022-06-21] MEDS: BACITRACIN 0.9 GM PACKET TP SCH ×2 (09:37→21:20)
[2022-06-21] MEDS: BACLOFEN 10 MG TABLET (FP) PO PRN (09:38)
[2022-06-21] MEDS: NICOTINE 10 MG CARTRIDGE (INHALER) IH PRN (10:10)
[2022-06-21] MEDS: NICOTINE 14 MG/24 HOURS TOPICAL PATCH TD PRN (10:11)
[2022-06-21] MEDS: BENZOCAINE/MENTHOL (CHLORASEPTIC ) LOZENGE MM PRN (10:11)
[2022-06-21] MEDS: LIDOCAINE 5% TOPICAL PATCH TP SCH (10:11)
[2022-06-21] MEDS: SUVOREXANT 15 MG TABLET PO PRN (21:20)
[2022-06-21] MEDS: THIAMINE HCL 100 MG TABLET (FP) PO SCH (21:20)
[2022-06-21] MEDS: LIDOCAINE PATCH REMOVAL MC SCH (21:21)
[2022-06-21] MEDS: QUEtiapine FUMARATE 100 MG TABLET (FP) PO SCH (21:22)
[2022-06-22] MEDS: VITAMINS A AND D TOPICAL OINTMENT 60 GM TUBE TP SCH ×4 (00:20→17:44)
[2022-06-22] MEDS: busPIRone HCL 5 MG TABLET PO SCH ×3 (06:43→21:25)
[2022-06-22] MEDS: hydrOXYzine PAMOATE 50 MG CAPSULE (FP) PO PRN ×3 (06:44→23:18)
[2022-06-22] MEDS: LIDOCAINE 5% TOPICAL PATCH TP SCH (09:54)
[2022-06-22] MEDS: BUPRENORPHINE/NALOXONE 8 MG/2 MG FILM PACKET SL SCH ×2 (09:54→21:26)
[2022-06-22] MEDS: DULoxetine HCL 30 MG CAPSULE.DR PO SCH (09:54)
[2022-06-22] MEDS: BACLOFEN 10 MG TABLET (FP) PO PRN ×2 (09:55→21:25)
[2022-06-22] MEDS: PRENATAL VITAMINS W/ FOLIC ACID TABLET (FP) PO SCH (09:55)
[2022-06-22] MEDS: NICOTINE 14 MG/24 HOURS TOPICAL PATCH TD PRN (09:56)
[2022-06-22] MEDS: NICOTINE 10 MG CARTRIDGE (INHALER) IH PRN (09:56)
[2022-06-22] MEDS: THIAMINE HCL 100 MG TABLET (FP) PO SCH (21:25)
[2022-06-22] MEDS: QUEtiapine FUMARATE 100 MG TABLET (FP) PO SCH (21:25)
[2022-06-22] MEDS: SUVOREXANT 15 MG TABLET PO PRN (21:26)
[2022-06-22] MEDS: LIDOCAINE PATCH REMOVAL MC SCH (21:28)
[2022-06-23] MEDS: VITAMINS A AND D TOPICAL OINTMENT 60 GM TUBE TP SCH ×4 (00:30→18:45)
[2022-06-23] MEDS: busPIRone HCL 5 MG TABLET PO SCH ×3 (06:20→21:09)
[2022-06-23] MEDS: hydrOXYzine PAMOATE 50 MG CAPSULE (FP) PO PRN ×3 (06:20→21:09)
[2022-06-23] MEDS: MAG HYDROX/AL HYDROX/SIMETH 30 ML UNIT-DOSE CUP PO PRN ×2 (06:21→21:10)
[2022-06-23] MEDS: PRENATAL VITAMINS W/ FOLIC ACID TABLET (FP) PO SCH (09:51)
[2022-06-23] MEDS: DULoxetine HCL 30 MG CAPSULE.DR PO SCH (09:51)
[2022-06-23] MEDS: BUPRENORPHINE/NALOXONE 8 MG/2 MG FILM PACKET SL SCH ×2 (09:52→21:10)
[2022-06-23] MEDS: BENZOCAINE/MENTHOL (CHLORASEPTIC ) LOZENGE MM PRN (09:53)
[2022-06-23] MEDS: LIDOCAINE 5% TOPICAL PATCH TP SCH (09:54)
[2022-06-23] MEDS: NICOTINE 10 MG CARTRIDGE (INHALER) IH PRN ×2 (09:57→21:08)
[2022-06-23] MEDS: NICOTINE 14 MG/24 HOURS TOPICAL PATCH TD PRN (09:57)
[2022-06-23] MEDS: BACLOFEN 10 MG TABLET (FP) PO PRN ×2 (13:11→21:09)
[2022-06-23] MEDS: IBUPROFEN 600 MG TABLET (FP) PO PRN (16:39)
[2022-06-23] MEDS: THIAMINE HCL 100 MG TABLET (FP) PO SCH (21:08)
[2022-06-23] MEDS: QUEtiapine FUMARATE 100 MG TABLET (FP) PO SCH (21:09)
[2022-06-23] MEDS: SUVOREXANT 15 MG TABLET PO PRN (21:10)
[2022-06-23] MEDS: LIDOCAINE PATCH REMOVAL MC SCH (21:12)
[2022-06-24] MEDS: NICOTINE 14 MG/24 HOURS TOPICAL PATCH TD PRN (06:27)
[2022-06-24] MEDS: NICOTINE 10 MG CARTRIDGE (INHALER) IH PRN ×2 (06:27→18:39)
[2022-06-24] MEDS: busPIRone HCL 5 MG TABLET PO SCH ×3 (07:12→21:02)
[2022-06-24] MEDS: VITAMINS A AND D TOPICAL OINTMENT 60 GM TUBE TP SCH ×3 (07:13→18:40)
[2022-06-24] MEDS: LIDOCAINE 5% TOPICAL PATCH TP SCH (09:50)
[2022-06-24] MEDS: DULoxetine HCL 30 MG CAPSULE.DR PO SCH (09:50)
[2022-06-24] MEDS: PRENATAL VITAMINS W/ FOLIC ACID TABLET (FP) PO SCH (09:50)
[2022-06-24] MEDS: BUPRENORPHINE/NALOXONE 8 MG/2 MG FILM PACKET SL SCH ×2 (09:50→21:03)
[2022-06-24] MEDS: BENZOCAINE/MENTHOL (CHLORASEPTIC ) LOZENGE MM PRN (13:44)
[2022-06-24] MEDS: IBUPROFEN 400 MG TABLET (FP) PO PRN (18:40)
[2022-06-24] MEDS: THIAMINE HCL 100 MG TABLET (FP) PO SCH (21:02)
[2022-06-24] MEDS: QUEtiapine FUMARATE 100 MG TABLET (FP) PO SCH (21:02)
[2022-06-24] MEDS: SUVOREXANT 15 MG TABLET PO PRN (21:03)
[2022-06-24] MEDS: LIDOCAINE PATCH REMOVAL MC SCH (21:04)
[2022-06-25] MEDS: VITAMINS A AND D TOPICAL OINTMENT 60 GM TUBE TP SCH ×4 (01:20→19:27)
[2022-06-25] MEDS: hydrOXYzine PAMOATE 50 MG CAPSULE (FP) PO PRN ×2 (06:29→14:09)
[2022-06-25] MEDS: busPIRone HCL 5 MG TABLET PO SCH ×3 (06:29→21:23)
[2022-06-25] MEDS: NICOTINE 10 MG CARTRIDGE (INHALER) IH PRN ×4 (06:30→21:24)
[2022-06-25] MEDS: NICOTINE 14 MG/24 HOURS TOPICAL PATCH TD PRN (06:31)
[2022-06-25] MEDS: PRENATAL VITAMINS W/ FOLIC ACID TABLET (FP) PO SCH (10:08)
[2022-06-25] MEDS: NICOTINE 21 MG/24 HOURS TOPICAL PATCH TD SCH (10:08)
[2022-06-25] MEDS: LIDOCAINE 5% TOPICAL PATCH TP SCH (10:08)
[2022-06-25] MEDS: BUPRENORPHINE/NALOXONE 8 MG/2 MG FILM PACKET SL SCH ×2 (10:09→21:23)
[2022-06-25] MEDS: DULoxetine HCL 30 MG CAPSULE.DR PO SCH (10:09)
[2022-06-25] MEDS: QUEtiapine FUMARATE 100 MG TABLET (FP) PO SCH (21:23)
[2022-06-25] MEDS: LIDOCAINE PATCH REMOVAL MC SCH (21:23)
[2022-06-25] MEDS: THIAMINE HCL 100 MG TABLET (FP) PO SCH (21:23)
[2022-06-25] MEDS: MAG HYDROX/AL HYDROX/SIMETH 30 ML UNIT-DOSE CUP PO PRN (21:24)
[2022-06-26] MEDS: VITAMINS A AND D TOPICAL OINTMENT 60 GM TUBE TP SCH ×4 (00:35→18:50)
[2022-06-26] MEDS: MAG HYDROX/AL HYDROX/SIMETH 30 ML UNIT-DOSE CUP PO PRN ×3 (06:18→21:14)
[2022-06-26] MEDS: busPIRone HCL 5 MG TABLET PO SCH ×3 (06:19→21:33)
[2022-06-26] MEDS: NICOTINE 10 MG CARTRIDGE (INHALER) IH PRN ×3 (06:20→21:14)
[2022-06-26] MEDS: BUPRENORPHINE/NALOXONE 8 MG/2 MG FILM PACKET SL SCH ×2 (09:53→21:15)
[2022-06-26] MEDS: DULoxetine HCL 30 MG CAPSULE.DR PO SCH (09:53)
[2022-06-26] MEDS: NICOTINE 21 MG/24 HOURS TOPICAL PATCH TD SCH (09:53)
[2022-06-26] MEDS: hydrOXYzine PAMOATE 50 MG CAPSULE (FP) PO PRN ×2 (09:53→21:15)
[2022-06-26] MEDS: LIDOCAINE 5% TOPICAL PATCH TP SCH (09:53)
[2022-06-26] MEDS: PRENATAL VITAMINS W/ FOLIC ACID TABLET (FP) PO SCH (09:53)
[2022-06-26] MEDS: THIAMINE HCL 100 MG TABLET (FP) PO SCH (21:14)
[2022-06-26] MEDS: SUVOREXANT 15 MG TABLET PO PRN (21:15)
[2022-06-26] MEDS: IBUPROFEN 600 MG TABLET (FP) PO PRN (21:15)
[2022-06-26] MEDS: QUEtiapine FUMARATE 100 MG TABLET (FP) PO SCH (21:15)
[2022-06-26] MEDS: LIDOCAINE PATCH REMOVAL MC SCH (21:34)
[2022-06-27] MEDS: VITAMINS A AND D TOPICAL OINTMENT 60 GM TUBE TP SCH ×4 (01:57→18:30)
[2022-06-27] MEDS: busPIRone HCL 5 MG TABLET PO SCH ×3 (06:46→21:11)
[2022-06-27] MEDS: PRENATAL VITAMINS W/ FOLIC ACID TABLET (FP) PO SCH (09:51)
[2022-06-27] MEDS: LIDOCAINE 5% TOPICAL PATCH TP SCH (09:52)
[2022-06-27] MEDS: NICOTINE 10 MG CARTRIDGE (INHALER) IH PRN ×3 (09:52→21:11)
[2022-06-27] MEDS: BUPRENORPHINE/NALOXONE 8 MG/2 MG FILM PACKET SL SCH ×2 (09:52→21:12)
[2022-06-27] MEDS: NICOTINE 21 MG/24 HOURS TOPICAL PATCH TD SCH (09:52)
[2022-06-27] MEDS: DULoxetine HCL 30 MG CAPSULE.DR PO SCH (09:52)
[2022-06-27] MEDS: MAG HYDROX/AL HYDROX/SIMETH 30 ML UNIT-DOSE CUP PO PRN (09:53)
[2022-06-27] MEDS: COLLOIDAL OATMEAL 1 BAR EACH TP PRN (11:30)
[2022-06-27] MEDS: IBUPROFEN 600 MG TABLET (FP) PO PRN (13:25)
[2022-06-27] MEDS ORDERED: BENZOCAINE 20 % GEL TUBE MM PRN (13:35)
[2022-06-27] MEDS: CHLORHEXIDINE GLUCONATE 0.12% 15ML CUP MM SCH ×2 (14:50→21:33)
[2022-06-27] MEDS: QUEtiapine FUMARATE 100 MG TABLET (FP) PO SCH (21:11)
[2022-06-27] MEDS: hydrOXYzine PAMOATE 50 MG CAPSULE (FP) PO PRN (21:11)
[2022-06-27] MEDS: THIAMINE HCL 100 MG TABLET (FP) PO SCH (21:11)
[2022-06-27] MEDS: SUVOREXANT 15 MG TABLET PO PRN (21:12)
[2022-06-27] MEDS: LIDOCAINE PATCH REMOVAL MC SCH (21:14)
[2022-06-27] MEDS ORDERED: SUVOREXANT 15 MG TABLET PO PRN (22:00)
[2022-06-28] MEDS: VITAMINS A AND D TOPICAL OINTMENT 60 GM TUBE TP SCH ×4 (01:54→18:18)
[2022-06-28] MEDS: NICOTINE 10 MG CARTRIDGE (INHALER) IH PRN ×4 (06:12→21:13)
[2022-06-28] MEDS: IBUPROFEN 600 MG TABLET (FP) PO PRN (06:15)
[2022-06-28] MEDS: BACLOFEN 10 MG TABLET (FP) PO PRN ×2 (06:17→21:14)
[2022-06-28] MEDS: hydrOXYzine PAMOATE 50 MG CAPSULE (FP) PO PRN ×3 (06:17→21:14)
[2022-06-28] MEDS: busPIRone HCL 5 MG TABLET PO SCH ×3 (06:36→21:14)
[2022-06-28] MEDS: DULoxetine HCL 30 MG CAPSULE.DR PO SCH (09:50)
[2022-06-28] MEDS: NICOTINE 21 MG/24 HOURS TOPICAL PATCH TD SCH (09:50)
[2022-06-28] MEDS: LIDOCAINE 5% TOPICAL PATCH TP SCH (09:50)
[2022-06-28] MEDS: BUPRENORPHINE/NALOXONE 8 MG/2 MG FILM PACKET SL SCH ×2 (09:50→21:14)
[2022-06-28] MEDS: PRENATAL VITAMINS W/ FOLIC ACID TABLET (FP) PO SCH (09:50)
[2022-06-28] MEDS: CHLORHEXIDINE GLUCONATE 0.12% 15ML CUP MM SCH ×2 (09:50→21:20)
[2022-06-28] MEDS: MAG HYDROX/AL HYDROX/SIMETH 30 ML UNIT-DOSE CUP PO PRN (16:43)
[2022-06-28] MEDS: QUEtiapine FUMARATE 100 MG TABLET (FP) PO SCH (21:14)
[2022-06-28] MEDS: IBUPROFEN 400 MG TABLET (FP) PO PRN (21:14)
[2022-06-28] MEDS: THIAMINE HCL 100 MG TABLET (FP) PO SCH (21:14)
[2022-06-28] MEDS: SUVOREXANT 15 MG TABLET PO PRN (21:17)
[2022-06-28] MEDS: LIDOCAINE PATCH REMOVAL MC SCH (23:57)
[2022-06-29] MEDS: VITAMINS A AND D TOPICAL OINTMENT 60 GM TUBE TP SCH ×4 (01:25→19:34)
[2022-06-29] MEDS: hydrOXYzine PAMOATE 50 MG CAPSULE (FP) PO PRN (05:48)
[2022-06-29] MEDS: NICOTINE 14 MG/24 HOURS TOPICAL PATCH TD PRN (05:49)
[2022-06-29] MEDS: NICOTINE 10 MG CARTRIDGE (INHALER) IH PRN ×3 (05:50→21:21)
[2022-06-29] MEDS: busPIRone HCL 5 MG TABLET PO SCH (07:21)
[2022-06-29] MEDS: PRENATAL VITAMINS W/ FOLIC ACID TABLET (FP) PO SCH (09:52)
[2022-06-29] MEDS: LIDOCAINE 5% TOPICAL PATCH TP SCH (09:52)
[2022-06-29] MEDS: DULoxetine HCL 30 MG CAPSULE.DR PO SCH (09:52)
[2022-06-29] MEDS: BUPRENORPHINE/NALOXONE 8 MG/2 MG FILM PACKET SL SCH ×2 (09:52→21:23)
[2022-06-29] MEDS: NICOTINE 21 MG/24 HOURS TOPICAL PATCH TD SCH (09:52)
[2022-06-29] MEDS: BACLOFEN 10 MG TABLET (FP) PO PRN ×2 (09:53→21:23)
[2022-06-29] MEDS: MAG HYDROX/AL HYDROX/SIMETH 30 ML UNIT-DOSE CUP PO PRN ×2 (09:55→16:12)
[2022-06-29] MEDS: CHLORHEXIDINE GLUCONATE 0.12% 15ML CUP MM SCH ×2 (09:57→22:59)
[2022-06-29] MEDS: THIAMINE HCL 100 MG TABLET (FP) PO SCH (21:21)
[2022-06-29] MEDS: QUEtiapine FUMARATE 100 MG TABLET (FP) PO SCH (21:22)
[2022-06-29] MEDS: SUVOREXANT 15 MG TABLET PO PRN (21:23)
[2022-06-29] MEDS: LIDOCAINE PATCH REMOVAL MC SCH (21:24)
[2022-06-30] MEDS: VITAMINS A AND D TOPICAL OINTMENT 60 GM TUBE TP SCH ×4 (00:20→18:50)
[2022-06-30] MEDS: hydrOXYzine PAMOATE 50 MG CAPSULE (FP) PO PRN ×2 (06:15→15:49)
[2022-06-30] MEDS: NICOTINE 10 MG CARTRIDGE (INHALER) IH PRN ×4 (06:15→21:20)
[2022-06-30] MEDS: NICOTINE 21 MG/24 HOURS TOPICAL PATCH TD SCH (09:56)
[2022-06-30] MEDS: BUPRENORPHINE/NALOXONE 8 MG/2 MG FILM PACKET SL SCH (09:56)
[2022-06-30] MEDS: DULoxetine HCL 30 MG CAPSULE.DR PO SCH (09:56)
[2022-06-30] MEDS: CHLORHEXIDINE GLUCONATE 0.12% 15ML CUP MM SCH ×2 (09:56→21:22)
[2022-06-30] MEDS: LIDOCAINE 5% TOPICAL PATCH TP SCH (09:56)
[2022-06-30] MEDS: PRENATAL VITAMINS W/ FOLIC ACID TABLET (FP) PO SCH (09:56)
[2022-06-30] MEDS: MAG HYDROX/AL HYDROX/SIMETH 30 ML UNIT-DOSE CUP PO PRN (09:57)
[2022-06-30] MEDS ORDERED: AMMONIUM LACTATE 12% LOTION 225 GM BOTTLE TP PRN (10:16)
[2022-06-30] MEDS: PANTOPRAZOLE 20 MG TABLET PO SCH (11:56)
[2022-06-30] MEDS: BACLOFEN 10 MG TABLET (FP) PO PRN ×2 (15:49→21:20)
[2022-06-30] MEDS: IBUPROFEN 600 MG TABLET (FP) PO PRN (17:06)
[2022-06-30] MEDS: THIAMINE HCL 100 MG TABLET (FP) PO SCH (21:19)
[2022-06-30] MEDS: QUEtiapine FUMARATE 100 MG TABLET (FP) PO SCH (21:20)
[2022-06-30] MEDS: BUPRENORPHINE/NALOXONE 12 MG-3 MG SL FILM PACKET SL SCH (21:21)
[2022-06-30] MEDS: SUVOREXANT 15 MG TABLET PO PRN (21:21)
[2022-06-30] MEDS: LIDOCAINE PATCH REMOVAL MC SCH (21:22)
[2022-07-01] MEDS: VITAMINS A AND D TOPICAL OINTMENT 60 GM TUBE TP SCH ×4 (01:06→18:50)
[2022-07-01] MEDS: NICOTINE 10 MG CARTRIDGE (INHALER) IH PRN ×4 (06:35→21:17)
[2022-07-01] MEDS: hydrOXYzine PAMOATE 50 MG CAPSULE (FP) PO PRN ×2 (06:35→21:18)
[2022-07-01] MEDS: BACLOFEN 10 MG TABLET (FP) PO PRN ×2 (10:06→21:18)
[2022-07-01] MEDS: BUPRENORPHINE/NALOXONE 8 MG/2 MG FILM PACKET SL SCH (10:06)
[2022-07-01] MEDS: PANTOPRAZOLE 20 MG TABLET PO SCH (10:06)
[2022-07-01] MEDS: NICOTINE 21 MG/24 HOURS TOPICAL PATCH TD SCH (10:06)
[2022-07-01] MEDS: DULoxetine HCL 30 MG CAPSULE.DR PO SCH (10:06)
[2022-07-01] MEDS: LIDOCAINE 5% TOPICAL PATCH TP SCH (10:07)
[2022-07-01] MEDS: CHLORHEXIDINE GLUCONATE 0.12% 15ML CUP MM SCH ×2 (10:07→21:18)
[2022-07-01] MEDS: PRENATAL VITAMINS W/ FOLIC ACID TABLET (FP) PO SCH (10:10)
[2022-07-01] MEDS: IBUPROFEN 600 MG TABLET (FP) PO PRN (13:14)
[2022-07-01] MEDS: MAG HYDROX/AL HYDROX/SIMETH 30 ML UNIT-DOSE CUP PO PRN (13:14)
[2022-07-01] MEDS: QUEtiapine FUMARATE 100 MG TABLET (FP) PO SCH (21:17)
[2022-07-01] MEDS: THIAMINE HCL 100 MG TABLET (FP) PO SCH (21:18)
[2022-07-01] MEDS: BUPRENORPHINE/NALOXONE 12 MG-3 MG SL FILM PACKET SL SCH (21:19)
[2022-07-01] MEDS: LIDOCAINE PATCH REMOVAL MC SCH (21:21)
[2022-07-01] MEDS ORDERED: SUVOREXANT 15 MG TABLET PO PRN (22:00)
[2022-07-02] MEDS: VITAMINS A AND D TOPICAL OINTMENT 60 GM TUBE TP SCH ×4 (00:30→17:26)
[2022-07-02] MEDS: NICOTINE 10 MG CARTRIDGE (INHALER) IH PRN ×4 (06:29→21:32)
[2022-07-02] MEDS: hydrOXYzine PAMOATE 50 MG CAPSULE (FP) PO PRN ×2 (06:29→21:33)
[2022-07-02] MEDS: PANTOPRAZOLE 20 MG TABLET PO SCH (10:00)
[2022-07-02] MEDS: DULoxetine HCL 30 MG CAPSULE.DR PO SCH (10:00)
[2022-07-02] MEDS: PRENATAL VITAMINS W/ FOLIC ACID TABLET (FP) PO SCH (10:00)
[2022-07-02] MEDS: NICOTINE 21 MG/24 HOURS TOPICAL PATCH TD SCH (10:02)
[2022-07-02] MEDS: BUPRENORPHINE/NALOXONE 8 MG/2 MG FILM PACKET SL SCH (10:02)
[2022-07-02] MEDS: LIDOCAINE 5% TOPICAL PATCH TP SCH (10:02)
[2022-07-02] MEDS: CHLORHEXIDINE GLUCONATE 0.12% 15ML CUP MM SCH ×2 (10:54→21:34)
[2022-07-02] MEDS: QUEtiapine FUMARATE 100 MG TABLET (FP) PO SCH (21:31)
[2022-07-02] MEDS: BUPRENORPHINE/NALOXONE 12 MG-3 MG SL FILM PACKET SL SCH (21:31)
[2022-07-02] MEDS: LIDOCAINE PATCH REMOVAL MC SCH (21:31)
[2022-07-02] MEDS: THIAMINE HCL 100 MG TABLET (FP) PO SCH (21:31)
[2022-07-02] MEDS: BACLOFEN 10 MG TABLET (FP) PO PRN (21:33)
[2022-07-03] MEDS: VITAMINS A AND D TOPICAL OINTMENT 60 GM TUBE TP SCH ×4 (00:13→18:39)
[2022-07-03] MEDS: hydrOXYzine PAMOATE 50 MG CAPSULE (FP) PO PRN (06:40)
[2022-07-03] MEDS: NICOTINE 14 MG/24 HOURS TOPICAL PATCH TD PRN (06:40)
[2022-07-03] MEDS: NICOTINE 10 MG CARTRIDGE (INHALER) IH PRN ×4 (06:41→21:50)
[2022-07-03 07:43] VITALS: RESP 18
[2022-07-03] MEDS: PANTOPRAZOLE 20 MG TABLET PO SCH (10:08)
[2022-07-03] MEDS: LIDOCAINE 5% TOPICAL PATCH TP SCH (10:08)
[2022-07-03] MEDS: PRENATAL VITAMINS W/ FOLIC ACID TABLET (FP) PO SCH (10:08)
[2022-07-03] MEDS: DULoxetine HCL 30 MG CAPSULE.DR PO SCH (10:09)
[2022-07-03] MEDS: NICOTINE 21 MG/24 HOURS TOPICAL PATCH TD SCH (10:09)
[2022-07-03] MEDS: BUPRENORPHINE/NALOXONE 8 MG/2 MG FILM PACKET SL SCH (10:09)
[2022-07-03] MEDS: BACLOFEN 10 MG TABLET (FP) PO PRN (10:15)
[2022-07-03] MEDS: CHLORHEXIDINE GLUCONATE 0.12% 15ML CUP MM SCH ×2 (10:19→21:48)
[2022-07-03] MEDS: LIDOCAINE PATCH REMOVAL MC SCH (21:47)
[2022-07-03] MEDS: BUPRENORPHINE/NALOXONE 12 MG-3 MG SL FILM PACKET SL SCH (21:48)
[2022-07-03] MEDS: QUEtiapine FUMARATE 100 MG TABLET (FP) PO SCH (21:48)
[2022-07-03] MEDS: THIAMINE HCL 100 MG TABLET (FP) PO SCH (21:48)
[2022-07-03] MEDS: IBUPROFEN 600 MG TABLET (FP) PO PRN (23:54)
[2022-07-04] MEDS: VITAMINS A AND D TOPICAL OINTMENT 60 GM TUBE TP SCH ×4 (02:02→19:15)
[2022-07-04] MEDS: NICOTINE 14 MG/24 HOURS TOPICAL PATCH TD PRN (05:58)
[2022-07-04] MEDS: NICOTINE 10 MG CARTRIDGE (INHALER) IH PRN ×3 (05:59→21:34)
[2022-07-04] MEDS: hydrOXYzine PAMOATE 50 MG CAPSULE (FP) PO PRN ×2 (06:02→21:34)
[2022-07-04 08:02] VITALS: TEMP 97.5
[2022-07-04] MEDS: NICOTINE 21 MG/24 HOURS TOPICAL PATCH TD SCH (10:25)
[2022-07-04] MEDS: PANTOPRAZOLE 20 MG TABLET PO SCH (10:25)
[2022-07-04] MEDS: PRENATAL VITAMINS W/ FOLIC ACID TABLET (FP) PO SCH (10:25)
[2022-07-04] MEDS: BUPRENORPHINE/NALOXONE 8 MG/2 MG FILM PACKET SL SCH (10:26)
[2022-07-04] MEDS: CHLORHEXIDINE GLUCONATE 0.12% 15ML CUP MM SCH ×2 (10:27→21:36)
[2022-07-04] MEDS: DULoxetine HCL 30 MG CAPSULE.DR PO SCH (10:27)
[2022-07-04] MEDS: LIDOCAINE 5% TOPICAL PATCH TP SCH (10:28)
[2022-07-04] MEDS: IBUPROFEN 600 MG TABLET (FP) PO PRN (16:04)
[2022-07-04] MEDS: LIDOCAINE PATCH REMOVAL MC SCH (21:33)
[2022-07-04] MEDS: THIAMINE HCL 100 MG TABLET (FP) PO SCH (21:33)
[2022-07-04] MEDS: QUEtiapine FUMARATE 100 MG TABLET (FP) PO SCH (21:33)
[2022-07-04] MEDS: BUPRENORPHINE/NALOXONE 12 MG-3 MG SL FILM PACKET SL SCH (21:33)
[2022-07-05] MEDS: VITAMINS A AND D TOPICAL OINTMENT 60 GM TUBE TP SCH ×3 (00:19→11:50)
[2022-07-05] MEDS: NICOTINE 10 MG CARTRIDGE (INHALER) IH PRN ×2 (07:01→10:09)
[2022-07-05] MEDS: IBUPROFEN 400 MG TABLET (FP) PO PRN (07:02)
[2022-07-05] MEDS: hydrOXYzine PAMOATE 50 MG CAPSULE (FP) PO PRN ×2 (07:02→09:53)
[2022-07-05] MEDS: PRENATAL VITAMINS W/ FOLIC ACID TABLET (FP) PO SCH (09:51)
[2022-07-05] MEDS: PANTOPRAZOLE 20 MG TABLET PO SCH (09:52)
[2022-07-05] MEDS: DULoxetine HCL 30 MG CAPSULE.DR PO SCH (09:52)
[2022-07-05] MEDS: NICOTINE 21 MG/24 HOURS TOPICAL PATCH TD SCH (09:53)
[2022-07-05] MEDS: BUPRENORPHINE/NALOXONE 8 MG/2 MG FILM PACKET SL SCH (09:53)
[2022-07-05] MEDS: LIDOCAINE 5% TOPICAL PATCH TP SCH (09:54)
[2022-07-05] MEDS: CHLORHEXIDINE GLUCONATE 0.12% 15ML CUP MM SCH (09:56)
[2022-07-05] MEDS: COLLOIDAL OATMEAL 1 BAR EACH TP PRN (10:09)
[2022-07-05 10:44] VITALS: BP 115/71; PULSE 101
== END 2022-07-05 14:58 | disposition home or self-care (01) | DRG 772 ==
LOC: YASAS 14:05 → Y3W 20:33
PROVIDERS: ADMIT Allergy & Immunology; ATTEND Psychiatry & Neurology Pain Medicine
PROC: HZ42ZZZ Group Counseling for Substance Abuse Treatment, Cognitive-Behavioral (ICD-10-PCS; principal; 2022-06-07)
DX: F11.20 Opioid dependence, uncomplicated (principal); F14.20 Cocaine dependence, uncomplicated; F15.20 Other stimulant dependence, uncomplicated; F12.20 Cannabis dependence, uncomplicated; F17.210 Nicotine dependence, cigarettes, uncomplicated; F19.282 Other psychoactive substance dependence with psychoactive substance-induced sleep disorder; F32.A Depression, unspecified; F42.4 Excoriation (skin-picking) disorder; G43.909 Migraine, unspecified, not intractable, without status migrainosus; K21.9 Gastro-esophageal reflux disease without esophagitis; K08.89 Other specified disorders of teeth and supporting structures; L98.8 Other specified disorders of the skin and subcutaneous tissue; M79.2 Neuralgia and neuritis, unspecified; R12 Heartburn; R60.0 Localized edema; R79.89 Other specified abnormal findings of blood chemistry
CPT/HCPCS: 36415; 80053; 82140; 82607; 82746; 83540; 83550; C9803-CS; J0475; U0003; U0005

== ENCOUNTER 2022-11-25 10:21 | Inpatient (IN) | payer OTHER ==
[2022-11-25 11:11] VITALS: BMI 23.1
[2022-11-25] MEDS ORDERED: MAGNESIUM HYDROX 2400MG/30ML ORAL SUSPENSION 30 ML CUP PO PRN (11:52)
[2022-11-25] MEDS ORDERED: DICYCLOMINE HCL 10 MG CAPSULE PO PRN (11:52)
[2022-11-25] MEDS ORDERED: IBUPROFEN 400 MG TABLET (FP) PO PRN (11:52)
[2022-11-25] MEDS ORDERED: BENZOCAINE/MENTHOL (CHLORASEPTIC ) LOZENGE MM PRN (11:52)
[2022-11-25] MEDS ORDERED: BENZONATATE 200 MG CAPSULE PO PRN (11:52)
[2022-11-25] MEDS ORDERED: ONDANSETRON *ODT* 4 MG TABLET SL PRN (11:52)
[2022-11-25] MEDS ORDERED: ACETAMINOPHEN 325 MG TABLET (FP) PO PRN (11:52)
[2022-11-25] MEDS ORDERED: NALOXONE HCL 0.4 MG/ML VIAL IM PRN (11:52)
[2022-11-25] MEDS ORDERED: POLYETHYLENE GLYCOL (HEALTHYLAX) 3350 17 GM PACKET PO PRN (11:52)
[2022-11-25] MEDS ORDERED: LOPERAMIDE HCL 2 MG CAPSULE PO PRN (11:52)
[2022-11-25] MEDS ORDERED: NALOXONE HCL (KLOXXADO) 8 MG SPRAY NS PRN (11:52)
[2022-11-25] MEDS ORDERED: MAG HYDROX/AL HYDROX/SIMETH 30 ML UNIT-DOSE CUP PO PRN (11:52)
[2022-11-25] MEDS ORDERED: BISMUTH SUBSALICYLATE 524 MG/30 ML PO PRN (11:52)
[2022-11-25] MEDS ORDERED: guaiFENesin 600 MG TABLET.ER (FP) PO PRN (11:52)
[2022-11-25] MEDS ORDERED: BUPRENORPHINE HCL 150 MCG, BUPRENORPHINE HCL 75 MCG BC PRN (11:52)
[2022-11-25] MEDS ORDERED: cloNIDine HCL 0.1 MG TABLET PO ONE (12:30)
[2022-11-25] MEDS ORDERED: BUPRENORPHINE HCL 150 MCG, BUPRENORPHINE HCL 75 MCG BC ONE (12:30)
[2022-11-25] MEDS ORDERED: BUPRENORPHINE HCL 150 MCG FILM BC ONE (12:40)
[2022-11-25] MEDS ORDERED: PRENATAL VITAMINS W/ FOLIC ACID TABLET (FP) PO ONE (12:41)
[2022-11-25] MEDS ORDERED: BUPRENORPHINE HCL 75 MCG FILM BC ONE (12:41)
[2022-11-25] MEDS ORDERED: NICOTINE 14 MG/24 HOURS TOPICAL PATCH TD ONE (12:41)
[2022-11-25] MEDS ORDERED: cloNIDine HCL 0.1 MG TABLET ONE (12:41)
[2022-11-25] MEDS: PRENATAL VITAMINS W/ FOLIC ACID TABLET (FP) PO SCH (12:46)
[2022-11-25] MEDS: NICOTINE 14 MG/24 HOURS TOPICAL PATCH TD SCH (12:46)
[2022-11-25 17:43] LABS: POTASSIUM 3.5 mmol/L (3.5-5.1)
[2022-11-25 17:45] LABS: CALCIUM 8.4 mg/dL (8.5-10.1); HEMATOCRIT 38.7 % (35.4-49); HEMOGLOBIN 13.5 GM/dL (11.7-16.9); MCH 28.7 pg (25.7-33.7); MCHC 34.9 g/dl (32.0-35.9); MEAN CELL VOLUME 82.2 fl (80-96); PLATELET COUNT 259 10^3/uL (134-434); RBC 4.71 M/mm3 (4.00-5.60); RDW 14.4 % (11.9-15.9); WHITE BLOOD COUNT 5.6 K/mm3 (4.0-10.0)
[2022-11-25 17:47] LABS: ALBUMIN 3.6 g/dl (3.4-5.0); BLOOD UREA NITROGEN 15.9 mg/dL (7-18)
[2022-11-25 17:49] LABS: CREATININE 0.7 mg/dL (0.55-1.3)
[2022-11-25] MEDS ORDERED: MELATONIN 5 MG TABLETS PO SCH (22:00)
[2022-11-25] MEDS: THIAMINE HCL 100 MG TABLET (FP) PO SCH (22:48)
[2022-11-25] MEDS: diazePAM 5 MG TABLET PO PRN (22:49)
[2022-11-26] MEDS ORDERED: BUPRENORPHINE HCL 150 MCG, BUPRENORPHINE HCL 75 MCG BC PRN
[2022-11-26] MEDS: IBUPROFEN 600 MG TABLET (FP) PO PRN ×2 (06:14→18:00)
[2022-11-26] MEDS: BUPRENORPHINE HCL 150 MCG, BUPRENORPHINE HCL 75 MCG BC SCH ×2 (06:15→17:57)
[2022-11-26] MEDS: NICOTINE 14 MG/24 HOURS TOPICAL PATCH TD SCH (10:40)
[2022-11-26] MEDS: PRENATAL VITAMINS W/ FOLIC ACID TABLET (FP) PO SCH (10:41)
[2022-11-26] MEDS: PANTOPRAZOLE 20 MG TABLET PO SCH (10:41)
[2022-11-26] MEDS: METHOCARBAMOL 500 MG TABLET PO PRN ×2 (10:41→22:33)
[2022-11-26] MEDS: hydrOXYzine PAMOATE 25 MG CAPSULE (FP) PO PRN (10:41)
[2022-11-26] MEDS: cloNIDine HCL 0.1 MG TABLET PO PRN (22:33)
[2022-11-26] MEDS: SUVOREXANT 10 MG TABLET PO PRN (22:33)
[2022-11-26] MEDS: THIAMINE HCL 100 MG TABLET (FP) PO SCH (22:34)
[2022-11-27] MEDS: BUPRENORPHINE HCL 450 MCG FILM BC SCH ×2 (05:52→17:33)
[2022-11-27] MEDS: NICOTINE 14 MG/24 HOURS TOPICAL PATCH TD SCH (10:39)
[2022-11-27] MEDS: hydrOXYzine PAMOATE 25 MG CAPSULE (FP) PO PRN ×2 (10:39→22:35)
[2022-11-27] MEDS: METHOCARBAMOL 500 MG TABLET PO PRN (10:39)
[2022-11-27] MEDS: PRENATAL VITAMINS W/ FOLIC ACID TABLET (FP) PO SCH (10:39)
[2022-11-27] MEDS: PANTOPRAZOLE 20 MG TABLET PO SCH (10:39)
[2022-11-27] MEDS: diazePAM 5 MG TABLET PO PRN (10:40)
[2022-11-27] MEDS: THIAMINE HCL 100 MG TABLET (FP) PO SCH (22:34)
[2022-11-27] MEDS: cloNIDine HCL 0.1 MG TABLET PO PRN (22:35)
[2022-11-27] MEDS: SUVOREXANT 10 MG TABLET PO PRN (22:35)
[2022-11-28] MEDS: BUPRENORPHINE/NALOXONE 4 MG/1 MG FILM PACKET SL SCH ×2 (05:47→17:36)
[2022-11-28] MEDS ORDERED: QUEtiapine FUMARATE 100 MG TABLET (FP) PO PRN (09:19)
[2022-11-28] MEDS: PANTOPRAZOLE 20 MG TABLET PO SCH (10:42)
[2022-11-28] MEDS: hydrOXYzine PAMOATE 25 MG CAPSULE (FP) PO PRN ×2 (10:42→22:23)
[2022-11-28] MEDS: PRENATAL VITAMINS W/ FOLIC ACID TABLET (FP) PO SCH (10:42)
[2022-11-28] MEDS: METHOCARBAMOL 500 MG TABLET PO PRN ×2 (10:42→22:23)
[2022-11-28] MEDS: NICOTINE 14 MG/24 HOURS TOPICAL PATCH TD SCH (10:42)
[2022-11-28] MEDS: cloNIDine HCL 0.1 MG TABLET PO PRN ×2 (10:43→22:23)
[2022-11-28] MEDS: amLODIPine BESYLATE 5 MG TABLET (FP) PO SCH (12:46)
[2022-11-28] MEDS ORDERED: diazePAM 5 MG TABLET PO ONE ×2 (16:30→17:45)
[2022-11-28] MEDS ORDERED: BUPRENORPHINE/NALOXONE 2 MG/0.5 MG FILM PACKET SL ONE (16:30)
[2022-11-28] MEDS: THIAMINE HCL 100 MG TABLET (FP) PO SCH (22:22)
[2022-11-29] MEDS ORDERED: BUPRENORPHINE/NALOXONE 8 MG/2 MG FILM PACKET SL ONE ×2 (06:00→10:00)
[2022-11-29 10:01] VITALS: RESP 18; TEMP 97.7
[2022-11-29] MEDS: PRENATAL VITAMINS W/ FOLIC ACID TABLET (FP) PO SCH (10:26)
[2022-11-29] MEDS: NICOTINE 14 MG/24 HOURS TOPICAL PATCH TD SCH (10:27)
[2022-11-29] MEDS: PANTOPRAZOLE 20 MG TABLET PO SCH (10:27)
[2022-11-29] MEDS: amLODIPine BESYLATE 5 MG TABLET (FP) PO SCH (10:27)
[2022-11-29] MEDS ORDERED: ALBUTEROL SO4 HFA INHALER IH PRN (11:39)
[2022-11-29] MEDS ORDERED: ALBUTEROL SO4 0.083% IH SOL 2.5 MG/3 ML VIAL.NEB. NEB PRN (11:39)
[2022-11-29 13:04] VITALS: BP 149/77; PULSE 81
== END 2022-11-29 14:10 | disposition other institution (70) | DRG 773 ==
LOC: YASAS 10:21 → Y6N 12:27
PROVIDERS: ADMIT Allergy & Immunology; ATTEND Surgery
PROC: HZ2ZZZZ Detoxification Services for Substance Abuse Treatment (ICD-10-PCS; principal; 2022-11-25)
DX: F11.23 Opioid dependence with withdrawal (principal); F15.20 Other stimulant dependence, uncomplicated; F17.210 Nicotine dependence, cigarettes, uncomplicated; F33.1 Major depressive disorder, recurrent, moderate; F19.282 Other psychoactive substance dependence with psychoactive substance-induced sleep disorder; F19.24 Other psychoactive substance dependence with psychoactive substance-induced mood disorder; B18.2 Chronic viral hepatitis C; K21.9 Gastro-esophageal reflux disease without esophagitis; I36.1 Nonrheumatic tricuspid (valve) insufficiency; Z62.810 Personal history of physical and sexual abuse in childhood; Z91.410 Personal history of adult physical and sexual abuse
CPT/HCPCS: 36415; 80053; 83036; 85027; 86780; 87635; 87811

== ENCOUNTER 2022-11-29 14:00 | Inpatient (IN) | payer OTHER ==
[~2022-11-29 14:00] MED LIST: ALBUTEROL SO4 0.083% IH SOL 2.5 MG/3 ML VIAL.NEB. NEB PRN; AMMONIUM LACTATE 12% LOTION 225 GM BOTTLE TP PRN; BENZOCAINE/MENTHOL (CHLORASEPTIC ) LOZENGE MM PRN; BENZONATATE 200 MG CAPSULE PO PRN; COLLOIDAL OATMEAL 1 BAR EACH TP PRN; LOPERAMIDE HCL 2 MG CAPSULE PO PRN; MAGNESIUM HYDROX 2400MG/30ML ORAL SUSPENSION 30 ML CUP PO PRN; NALOXONE HCL (KLOXXADO) 8 MG SPRAY NS PRN; NALOXONE HCL 0.4 MG/ML VIAL IVPUSH PRN; POLYETHYLENE GLYCOL (HEALTHYLAX) 3350 17 GM PACKET PO PRN; guaiFENesin 600 MG TABLET.ER (FP) PO PRN
[2022-11-29] MEDS: IBUPROFEN 600 MG TABLET (FP) PO PRN (16:23)
[2022-11-29] MEDS: NICOTINE POLACRILEX 2 MG GUM BUC PRN (16:26)
[2022-11-29] MEDS: METHOCARBAMOL 500 MG TABLET PO PRN (18:12)
[2022-11-29] MEDS: MELATONIN 5 MG TABLETS PO SCH (21:09)
[2022-11-29] MEDS: THIAMINE HCL 100 MG TABLET (FP) PO SCH (21:09)
[2022-11-29] MEDS: hydrOXYzine PAMOATE 25 MG CAPSULE (FP) PO PRN (21:10)
[2022-11-29] MEDS: BUPRENORPHINE/NALOXONE 8 MG/2 MG FILM PACKET SL SCH (21:10)
[2022-11-29] MEDS: QUEtiapine FUMARATE 100 MG TABLET (FP) PO SCH (21:10)
[2022-11-30] MEDS: ALBUTEROL SO4 HFA INHALER IH PRN ×2 (07:29→18:27)
[2022-11-30] MEDS: NICOTINE POLACRILEX 2 MG GUM BUC PRN ×2 (08:59→14:19)
[2022-11-30] MEDS: NICOTINE 21 MG/24 HOURS TOPICAL PATCH TD SCH (09:38)
[2022-11-30] MEDS: BUPRENORPHINE/NALOXONE 8 MG/2 MG FILM PACKET SL SCH ×2 (09:39→21:16)
[2022-11-30] MEDS: FAMOTIDINE 20 MG TABLET PO SCH (09:39)
[2022-11-30] MEDS: PRENATAL VITAMINS W/ FOLIC ACID TABLET (FP) PO SCH (09:39)
[2022-11-30] MEDS: amLODIPine BESYLATE 5 MG TABLET (FP) PO SCH (09:39)
[2022-11-30] MEDS ORDERED: BUPRENORPHINE/NALOXONE 8 MG/2 MG FILM PACKET SL SCH (10:00)
[2022-11-30] MEDS ORDERED: NICOTINE 14 MG/24 HOURS TOPICAL PATCH TD SCH (10:00)
[2022-11-30] MEDS ORDERED: PNEUMOC 20-VAL CONJ-DIP CRM/PF 0.5 ML SYRINGE IM ONE (12:00)
[2022-11-30 12:36] LABS: HIV INTERPRETATION NEGATIVE (NEGATIVE)
[2022-11-30] MEDS: GABAPENTIN 400 MG CAPSULE PO SCH ×2 (13:01→21:15)
[2022-11-30] MEDS: MAG HYDROX/AL HYDROX/SIMETH 30 ML UNIT-DOSE CUP PO PRN (17:01)
[2022-11-30] MEDS: THIAMINE HCL 100 MG TABLET (FP) PO SCH (21:15)
[2022-11-30] MEDS: QUEtiapine FUMARATE 100 MG TABLET (FP) PO SCH (21:15)
[2022-11-30] MEDS: MELATONIN 5 MG TABLETS PO SCH (21:15)
[2022-12-01] MEDS: GABAPENTIN 400 MG CAPSULE PO SCH ×3 (06:24→21:14)
[2022-12-01] MEDS: NICOTINE POLACRILEX 2 MG GUM BUC PRN ×3 (07:28→13:30)
[2022-12-01] MEDS: QUEtiapine FUMARATE 50 MG TABLET PO SCH (07:58)
[2022-12-01] MEDS: ALBUTEROL SO4 HFA INHALER IH PRN (09:29)
[2022-12-01] MEDS: FAMOTIDINE 20 MG TABLET PO SCH (09:34)
[2022-12-01] MEDS: METHOCARBAMOL 500 MG TABLET PO PRN ×2 (09:34→21:14)
[2022-12-01] MEDS: amLODIPine BESYLATE 5 MG TABLET (FP) PO SCH (09:34)
[2022-12-01] MEDS: PRENATAL VITAMINS W/ FOLIC ACID TABLET (FP) PO SCH (09:35)
[2022-12-01] MEDS: NICOTINE 21 MG/24 HOURS TOPICAL PATCH TD SCH (09:35)
[2022-12-01] MEDS: BUPRENORPHINE/NALOXONE 8 MG/2 MG FILM PACKET SL SCH ×2 (09:35→21:14)
[2022-12-01] MEDS ORDERED: QUEtiapine FUMARATE 50 MG TABLET PO SCH (10:00)
[2022-12-01] MEDS: MELATONIN 5 MG TABLETS PO SCH (21:14)
[2022-12-01] MEDS: THIAMINE HCL 100 MG TABLET (FP) PO SCH (21:14)
[2022-12-01] MEDS: QUEtiapine FUMARATE 100 MG TABLET (FP) PO SCH (21:14)
[2022-12-02] MEDS: GABAPENTIN 400 MG CAPSULE PO SCH ×3 (06:14→21:20)
[2022-12-02] MEDS: QUEtiapine FUMARATE 50 MG TABLET PO SCH (07:36)
[2022-12-02] MEDS: NICOTINE POLACRILEX 2 MG GUM BUC PRN (08:58)
[2022-12-02] MEDS: METHOCARBAMOL 500 MG TABLET PO PRN ×2 (08:58→21:20)
[2022-12-02] MEDS: amLODIPine BESYLATE 5 MG TABLET (FP) PO SCH (10:12)
[2022-12-02] MEDS: NICOTINE 21 MG/24 HOURS TOPICAL PATCH TD SCH (10:12)
[2022-12-02] MEDS: PRENATAL VITAMINS W/ FOLIC ACID TABLET (FP) PO SCH (10:13)
[2022-12-02] MEDS: FAMOTIDINE 20 MG TABLET PO SCH (10:13)
[2022-12-02] MEDS: BUPRENORPHINE/NALOXONE 8 MG/2 MG FILM PACKET SL SCH ×3 (10:13→21:20)
[2022-12-02] MEDS: ALBUTEROL SO4 HFA INHALER IH PRN (11:32)
[2022-12-02] MEDS ORDERED: LIDOCAINE 4% PATCH TP ONE (11:37)
[2022-12-02] MEDS: NICOTINE POLACRILEX 4 MG GUM BUC PRN ×2 (12:26→17:25)
[2022-12-02] MEDS: CLINDAMYCIN PHOSPHATE 1% TOPICAL GEL 30 GM TUBE TP SCH ×2 (16:14→21:19)
[2022-12-02] MEDS: hydrOXYzine PAMOATE 25 MG CAPSULE (FP) PO PRN ×2 (17:23→21:20)
[2022-12-02] MEDS: THIAMINE HCL 100 MG TABLET (FP) PO SCH (21:19)
[2022-12-02] MEDS: QUEtiapine FUMARATE 100 MG TABLET (FP) PO SCH (21:20)
[2022-12-02] MEDS: LIDOCAINE PATCH REMOVAL MC SCH (21:20)
[2022-12-02] MEDS: SUVOREXANT 15 MG TABLET PO PRN (21:22)
[2022-12-03] MEDS: BUPRENORPHINE/NALOXONE 8 MG/2 MG FILM PACKET SL SCH ×3 (06:23→21:44)
[2022-12-03] MEDS: GABAPENTIN 400 MG CAPSULE PO SCH ×3 (06:23→21:11)
[2022-12-03] MEDS: NICOTINE POLACRILEX 4 MG GUM BUC PRN ×3 (07:05→21:46)
[2022-12-03] MEDS: QUEtiapine FUMARATE 50 MG TABLET PO SCH (07:29)
[2022-12-03] MEDS: FAMOTIDINE 20 MG TABLET PO SCH (09:42)
[2022-12-03] MEDS: NICOTINE 21 MG/24 HOURS TOPICAL PATCH TD SCH (09:43)
[2022-12-03] MEDS: CLINDAMYCIN PHOSPHATE 1% TOPICAL GEL 30 GM TUBE TP SCH ×2 (09:43→21:11)
[2022-12-03] MEDS: amLODIPine BESYLATE 5 MG TABLET (FP) PO SCH (09:43)
[2022-12-03] MEDS: PRENATAL VITAMINS W/ FOLIC ACID TABLET (FP) PO SCH (09:45)
[2022-12-03] MEDS: DULoxetine HCL 30 MG CAPSULE.DR PO SCH (09:45)
[2022-12-03] MEDS: MAG HYDROX/AL HYDROX/SIMETH 30 ML UNIT-DOSE CUP PO PRN (19:37)
[2022-12-03] MEDS: THIAMINE HCL 100 MG TABLET (FP) PO SCH (21:11)
[2022-12-03] MEDS: QUEtiapine FUMARATE 100 MG TABLET (FP) PO SCH (21:11)
[2022-12-03] MEDS: SUVOREXANT 15 MG TABLET PO PRN (21:12)
[2022-12-03] MEDS: LIDOCAINE PATCH REMOVAL MC SCH (21:39)
[2022-12-04] MEDS: GABAPENTIN 400 MG CAPSULE PO SCH ×3 (06:40→21:36)
[2022-12-04] MEDS: BUPRENORPHINE/NALOXONE 8 MG/2 MG FILM PACKET SL SCH ×3 (06:41→21:36)
[2022-12-04] MEDS: QUEtiapine FUMARATE 50 MG TABLET PO SCH (07:14)
[2022-12-04] MEDS: FAMOTIDINE 20 MG TABLET PO SCH (09:31)
[2022-12-04] MEDS: NICOTINE 21 MG/24 HOURS TOPICAL PATCH TD SCH (09:31)
[2022-12-04] MEDS: amLODIPine BESYLATE 5 MG TABLET (FP) PO SCH (09:31)
[2022-12-04] MEDS: ALBUTEROL SO4 HFA INHALER IH PRN ×2 (09:32→21:37)
[2022-12-04] MEDS: CLINDAMYCIN PHOSPHATE 1% TOPICAL GEL 30 GM TUBE TP SCH ×2 (09:32→22:25)
[2022-12-04] MEDS: DULoxetine HCL 30 MG CAPSULE.DR PO SCH (09:32)
[2022-12-04] MEDS: PRENATAL VITAMINS W/ FOLIC ACID TABLET (FP) PO SCH (09:32)
[2022-12-04] MEDS: NICOTINE POLACRILEX 4 MG GUM BUC PRN (14:44)
[2022-12-04] MEDS: IBUPROFEN 600 MG TABLET (FP) PO PRN (18:09)
[2022-12-04] MEDS: THIAMINE HCL 100 MG TABLET (FP) PO SCH (21:11)
[2022-12-04] MEDS: QUEtiapine FUMARATE 100 MG TABLET (FP) PO SCH (21:36)
[2022-12-04] MEDS: METHOCARBAMOL 500 MG TABLET PO PRN (21:36)
[2022-12-04] MEDS: SUVOREXANT 15 MG TABLET PO PRN (21:36)
[2022-12-04] MEDS: LIDOCAINE PATCH REMOVAL MC SCH (22:27)
[2022-12-05] MEDS: ALBUTEROL SO4 HFA INHALER IH PRN ×2 (06:21→21:12)
[2022-12-05] MEDS: BUPRENORPHINE/NALOXONE 8 MG/2 MG FILM PACKET SL SCH ×3 (06:22→21:12)
[2022-12-05] MEDS: GABAPENTIN 400 MG CAPSULE PO SCH ×3 (06:22→21:12)
[2022-12-05] MEDS: NICOTINE POLACRILEX 4 MG GUM BUC PRN ×4 (06:23→17:26)
[2022-12-05] MEDS: QUEtiapine FUMARATE 50 MG TABLET PO SCH (07:26)
[2022-12-05] MEDS: FAMOTIDINE 20 MG TABLET PO SCH (10:18)
[2022-12-05] MEDS: amLODIPine BESYLATE 5 MG TABLET (FP) PO SCH (10:19)
[2022-12-05] MEDS: PRENATAL VITAMINS W/ FOLIC ACID TABLET (FP) PO SCH (10:19)
[2022-12-05] MEDS: NICOTINE 21 MG/24 HOURS TOPICAL PATCH TD SCH (10:19)
[2022-12-05] MEDS: DULoxetine HCL 30 MG CAPSULE.DR PO SCH (10:19)
[2022-12-05] MEDS: CLINDAMYCIN PHOSPHATE 1% TOPICAL GEL 30 GM TUBE TP SCH ×2 (10:22→21:14)
[2022-12-05] MEDS ORDERED: LIDOCAINE 4% PATCH TP ONE (12:53)
[2022-12-05] MEDS: LIDOCAINE 5% TOPICAL PATCH TP SCH (14:57)
[2022-12-05] MEDS: SUVOREXANT 15 MG TABLET PO PRN (21:11)
[2022-12-05] MEDS: THIAMINE HCL 100 MG TABLET (FP) PO SCH (21:12)
[2022-12-05] MEDS: QUEtiapine FUMARATE 100 MG TABLET (FP) PO SCH (21:12)
[2022-12-05] MEDS: LIDOCAINE PATCH REMOVAL MC SCH (21:13)
[2022-12-05] MEDS ORDERED: LIDOCAINE PATCH REMOVAL MC SCH (22:00)
[2022-12-06] MEDS: GABAPENTIN 400 MG CAPSULE PO SCH ×3 (06:13→21:08)
[2022-12-06] MEDS: ALBUTEROL SO4 HFA INHALER IH PRN ×2 (06:14→15:30)
[2022-12-06] MEDS: BUPRENORPHINE/NALOXONE 8 MG/2 MG FILM PACKET SL SCH ×3 (06:14→21:07)
[2022-12-06] MEDS: QUEtiapine FUMARATE 50 MG TABLET PO SCH (07:10)
[2022-12-06] MEDS: IBUPROFEN 600 MG TABLET (FP) PO PRN ×2 (10:17→18:09)
[2022-12-06] MEDS: DULoxetine HCL 30 MG CAPSULE.DR PO SCH (10:18)
[2022-12-06] MEDS: LIDOCAINE 5% TOPICAL PATCH TP SCH (10:19)
[2022-12-06] MEDS: amLODIPine BESYLATE 5 MG TABLET (FP) PO SCH (10:19)
[2022-12-06] MEDS: FAMOTIDINE 20 MG TABLET PO SCH (10:19)
[2022-12-06] MEDS: NICOTINE 21 MG/24 HOURS TOPICAL PATCH TD SCH (10:19)
[2022-12-06] MEDS: CLINDAMYCIN PHOSPHATE 1% TOPICAL GEL 30 GM TUBE TP SCH ×2 (10:20→21:08)
[2022-12-06] MEDS: PRENATAL VITAMINS W/ FOLIC ACID TABLET (FP) PO SCH (10:20)
[2022-12-06] MEDS: NICOTINE POLACRILEX 4 MG GUM BUC PRN ×3 (10:22→15:56)
[2022-12-06] MEDS: METHOCARBAMOL 500 MG TABLET PO SCH ×2 (18:09→21:07)
[2022-12-06] MEDS: THIAMINE HCL 100 MG TABLET (FP) PO SCH (21:07)
[2022-12-06] MEDS: LIDOCAINE PATCH REMOVAL MC SCH (21:08)
[2022-12-06] MEDS: QUEtiapine FUMARATE 100 MG TABLET (FP) PO SCH (21:08)
[2022-12-06] MEDS: SUVOREXANT 15 MG TABLET PO PRN (21:08)
[2022-12-06] MEDS: MAG HYDROX/AL HYDROX/SIMETH 30 ML UNIT-DOSE CUP PO PRN (21:09)
[2022-12-07] MEDS: GABAPENTIN 400 MG CAPSULE PO SCH ×3 (06:17→21:08)
[2022-12-07] MEDS: BUPRENORPHINE/NALOXONE 8 MG/2 MG FILM PACKET SL SCH ×3 (06:18→21:07)
[2022-12-07] MEDS: ALBUTEROL SO4 HFA INHALER IH PRN (06:18)
[2022-12-07] MEDS: NICOTINE POLACRILEX 4 MG GUM BUC PRN ×3 (06:19→21:09)
[2022-12-07] MEDS: QUEtiapine FUMARATE 50 MG TABLET PO SCH (07:16)
[2022-12-07] MEDS: MAG HYDROX/AL HYDROX/SIMETH 30 ML UNIT-DOSE CUP PO PRN (07:54)
[2022-12-07] MEDS: LIDOCAINE 5% TOPICAL PATCH TP SCH (09:58)
[2022-12-07] MEDS: CLINDAMYCIN PHOSPHATE 1% TOPICAL GEL 30 GM TUBE TP SCH ×2 (09:58→21:08)
[2022-12-07] MEDS: NICOTINE 21 MG/24 HOURS TOPICAL PATCH TD SCH (09:58)
[2022-12-07] MEDS: DULoxetine HCL 30 MG CAPSULE.DR PO SCH (09:58)
[2022-12-07] MEDS: amLODIPine BESYLATE 5 MG TABLET (FP) PO SCH (09:59)
[2022-12-07] MEDS: METHOCARBAMOL 500 MG TABLET PO SCH ×4 (09:59→21:08)
[2022-12-07] MEDS: FAMOTIDINE 20 MG TABLET PO SCH (09:59)
[2022-12-07] MEDS: PRENATAL VITAMINS W/ FOLIC ACID TABLET (FP) PO SCH (10:00)
[2022-12-07] MEDS: IBUPROFEN 600 MG TABLET (FP) PO PRN (17:40)
[2022-12-07] MEDS: THIAMINE HCL 100 MG TABLET (FP) PO SCH (21:07)
[2022-12-07] MEDS: LIDOCAINE PATCH REMOVAL MC SCH (21:08)
[2022-12-07] MEDS: QUEtiapine FUMARATE 100 MG TABLET (FP) PO SCH (21:08)
[2022-12-07] MEDS: SUVOREXANT 15 MG TABLET PO PRN (21:08)
[2022-12-08] MEDS: BUPRENORPHINE/NALOXONE 8 MG/2 MG FILM PACKET SL SCH ×3 (06:06→21:52)
[2022-12-08] MEDS: GABAPENTIN 400 MG CAPSULE PO SCH ×3 (06:06→21:05)
[2022-12-08] MEDS: ALBUTEROL SO4 HFA INHALER IH PRN (06:07)
[2022-12-08] MEDS: NICOTINE POLACRILEX 4 MG GUM BUC PRN ×3 (06:08→21:05)
[2022-12-08] MEDS: QUEtiapine FUMARATE 50 MG TABLET PO SCH (07:04)
[2022-12-08] MEDS: LIDOCAINE 5% TOPICAL PATCH TP SCH (10:11)
[2022-12-08] MEDS: NICOTINE 21 MG/24 HOURS TOPICAL PATCH TD SCH (10:12)
[2022-12-08] MEDS: CLINDAMYCIN PHOSPHATE 1% TOPICAL GEL 30 GM TUBE TP SCH ×2 (10:12→21:52)
[2022-12-08] MEDS: METHOCARBAMOL 500 MG TABLET PO SCH ×4 (10:13→21:05)
[2022-12-08] MEDS: DULoxetine HCL 30 MG CAPSULE.DR PO SCH (10:13)
[2022-12-08] MEDS: amLODIPine BESYLATE 5 MG TABLET (FP) PO SCH (10:14)
[2022-12-08] MEDS: FAMOTIDINE 20 MG TABLET PO SCH (10:14)
[2022-12-08] MEDS: PRENATAL VITAMINS W/ FOLIC ACID TABLET (FP) PO SCH (10:15)
[2022-12-08] MEDS: THIAMINE HCL 100 MG TABLET (FP) PO SCH (21:05)
[2022-12-08] MEDS: QUEtiapine FUMARATE 100 MG TABLET (FP) PO SCH (21:05)
[2022-12-08] MEDS: SUVOREXANT 15 MG TABLET PO PRN (21:05)
[2022-12-08] MEDS: LIDOCAINE PATCH REMOVAL MC SCH (21:53)
[2022-12-09] MEDS: QUEtiapine FUMARATE 50 MG TABLET PO SCH (06:59)
[2022-12-09] MEDS: NICOTINE POLACRILEX 4 MG GUM BUC PRN ×3 (06:59→17:01)
[2022-12-09] MEDS: GABAPENTIN 400 MG CAPSULE PO SCH ×3 (06:59→21:22)
[2022-12-09] MEDS: BUPRENORPHINE/NALOXONE 8 MG/2 MG FILM PACKET SL SCH ×3 (06:59→21:21)
[2022-12-09] MEDS: LIDOCAINE 5% TOPICAL PATCH TP SCH (09:50)
[2022-12-09] MEDS: DULoxetine HCL 30 MG CAPSULE.DR PO SCH (09:50)
[2022-12-09] MEDS: CLINDAMYCIN PHOSPHATE 1% TOPICAL GEL 30 GM TUBE TP SCH ×2 (09:50→21:24)
[2022-12-09] MEDS: NICOTINE 21 MG/24 HOURS TOPICAL PATCH TD SCH (09:51)
[2022-12-09] MEDS: amLODIPine BESYLATE 5 MG TABLET (FP) PO SCH (09:51)
[2022-12-09] MEDS: PRENATAL VITAMINS W/ FOLIC ACID TABLET (FP) PO SCH (09:52)
[2022-12-09] MEDS: METHOCARBAMOL 500 MG TABLET PO SCH ×4 (09:52→21:22)
[2022-12-09] MEDS: FAMOTIDINE 20 MG TABLET PO SCH (09:52)
[2022-12-09] MEDS: ALBUTEROL SO4 HFA INHALER IH PRN ×2 (09:52→17:00)
[2022-12-09] MEDS: THIAMINE HCL 100 MG TABLET (FP) PO SCH (21:19)
[2022-12-09] MEDS: QUEtiapine FUMARATE 100 MG TABLET (FP) PO SCH (21:22)
[2022-12-09] MEDS: LIDOCAINE PATCH REMOVAL MC SCH (21:24)
[2022-12-10] MEDS: NICOTINE POLACRILEX 4 MG GUM BUC PRN (06:12)
[2022-12-10] MEDS: ALBUTEROL SO4 HFA INHALER IH PRN (06:12)
[2022-12-10] MEDS: BUPRENORPHINE/NALOXONE 8 MG/2 MG FILM PACKET SL SCH ×3 (06:13→21:04)
[2022-12-10] MEDS: GABAPENTIN 400 MG CAPSULE PO SCH ×3 (06:13→21:05)
[2022-12-10] MEDS: QUEtiapine FUMARATE 50 MG TABLET PO SCH (07:02)
[2022-12-10] MEDS: LIDOCAINE 5% TOPICAL PATCH TP SCH (10:00)
[2022-12-10] MEDS: FAMOTIDINE 20 MG TABLET PO SCH (10:01)
[2022-12-10] MEDS: PRENATAL VITAMINS W/ FOLIC ACID TABLET (FP) PO SCH (10:01)
[2022-12-10] MEDS: DULoxetine HCL 30 MG CAPSULE.DR PO SCH (10:01)
[2022-12-10] MEDS: amLODIPine BESYLATE 5 MG TABLET (FP) PO SCH (10:01)
[2022-12-10] MEDS: NICOTINE 21 MG/24 HOURS TOPICAL PATCH TD SCH (10:01)
[2022-12-10] MEDS: METHOCARBAMOL 500 MG TABLET PO SCH ×4 (10:01→21:05)
[2022-12-10] MEDS: guaiFENesin 200 MG/10 ML 10 ML UNIT-DOSE CUPS PO PRN (13:12)
[2022-12-10] MEDS: SELENIUM SULFIDE 2.25% 180 ML SHAMPOO TP SCH (13:12)
[2022-12-10] MEDS: MAG HYDROX/AL HYDROX/SIMETH 30 ML UNIT-DOSE CUP PO PRN (13:16)
[2022-12-10] MEDS: THIAMINE HCL 100 MG TABLET (FP) PO SCH (21:05)
[2022-12-10] MEDS: QUEtiapine FUMARATE 200 MG TABLET PO SCH (21:06)
[2022-12-10] MEDS: LIDOCAINE PATCH REMOVAL MC SCH (21:45)
[2022-12-10] MEDS: SUVOREXANT 15 MG TABLET PO PRN (21:46)
[2022-12-11] MEDS: GABAPENTIN 400 MG CAPSULE PO SCH ×3 (06:11→21:10)
[2022-12-11] MEDS: BUPRENORPHINE/NALOXONE 8 MG/2 MG FILM PACKET SL SCH ×3 (06:11→23:25)
[2022-12-11] MEDS: NICOTINE POLACRILEX 4 MG GUM BUC PRN ×2 (06:12→10:11)
[2022-12-11] MEDS: QUEtiapine FUMARATE 50 MG TABLET PO SCH (07:18)
[2022-12-11] MEDS: LIDOCAINE 5% TOPICAL PATCH TP SCH (10:07)
[2022-12-11] MEDS: NICOTINE 21 MG/24 HOURS TOPICAL PATCH TD SCH (10:07)
[2022-12-11] MEDS: DULoxetine HCL 30 MG CAPSULE.DR PO SCH (10:07)
[2022-12-11] MEDS: FAMOTIDINE 20 MG TABLET PO SCH (10:08)
[2022-12-11] MEDS: SELENIUM SULFIDE 2.25% 180 ML SHAMPOO TP SCH (10:08)
[2022-12-11] MEDS: PRENATAL VITAMINS W/ FOLIC ACID TABLET (FP) PO SCH (10:08)
[2022-12-11] MEDS: METHOCARBAMOL 500 MG TABLET PO SCH ×4 (10:08→21:09)
[2022-12-11] MEDS: amLODIPine BESYLATE 5 MG TABLET (FP) PO SCH (10:08)
[2022-12-11] MEDS: LIDOCAINE PATCH REMOVAL MC SCH (21:09)
[2022-12-11] MEDS: THIAMINE HCL 100 MG TABLET (FP) PO SCH (21:09)
[2022-12-11] MEDS: QUEtiapine FUMARATE 200 MG TABLET PO SCH (21:10)
[2022-12-11] MEDS: SUVOREXANT 15 MG TABLET PO PRN (21:11)
[2022-12-12] MEDS: GABAPENTIN 400 MG CAPSULE PO SCH ×3 (06:51→21:06)
[2022-12-12] MEDS: BUPRENORPHINE/NALOXONE 8 MG/2 MG FILM PACKET SL SCH ×3 (06:51→21:06)
[2022-12-12] MEDS: QUEtiapine FUMARATE 50 MG TABLET PO SCH (07:04)
[2022-12-12] MEDS: PRENATAL VITAMINS W/ FOLIC ACID TABLET (FP) PO SCH (09:49)
[2022-12-12] MEDS: NICOTINE POLACRILEX 4 MG GUM BUC PRN ×2 (09:49→14:39)
[2022-12-12] MEDS: amLODIPine BESYLATE 5 MG TABLET (FP) PO SCH (09:50)
[2022-12-12] MEDS: METHOCARBAMOL 500 MG TABLET PO SCH ×4 (09:50→21:06)
[2022-12-12] MEDS: DULoxetine HCL 30 MG CAPSULE.DR PO SCH (09:50)
[2022-12-12] MEDS: FAMOTIDINE 20 MG TABLET PO SCH (09:50)
[2022-12-12] MEDS: LIDOCAINE 5% TOPICAL PATCH TP SCH (09:51)
[2022-12-12] MEDS: NICOTINE 21 MG/24 HOURS TOPICAL PATCH TD SCH (09:51)
[2022-12-12] MEDS: SELENIUM SULFIDE 2.25% 180 ML SHAMPOO TP SCH (10:02)
[2022-12-12] MEDS ORDERED: ALBUTEROL SO4 0.083% IH SOL 2.5 MG/3 ML VIAL.NEB. NEB PRN (11:36)
[2022-12-12] MEDS: THIAMINE HCL 100 MG TABLET (FP) PO SCH (21:04)
[2022-12-12] MEDS: QUEtiapine FUMARATE 200 MG TABLET PO SCH (21:06)
[2022-12-12] MEDS: LIDOCAINE PATCH REMOVAL MC SCH (21:07)
[2022-12-12] MEDS: SUVOREXANT 15 MG TABLET PO PRN (21:07)
[2022-12-13] MEDS: BUPRENORPHINE/NALOXONE 8 MG/2 MG FILM PACKET SL SCH ×3 (07:05→21:12)
[2022-12-13] MEDS: GABAPENTIN 400 MG CAPSULE PO SCH ×3 (07:05→21:12)
[2022-12-13] MEDS: QUEtiapine FUMARATE 50 MG TABLET PO SCH (07:06)
[2022-12-13] MEDS: NICOTINE POLACRILEX 4 MG GUM BUC PRN ×3 (07:07→21:14)
[2022-12-13] MEDS: NICOTINE 21 MG/24 HOURS TOPICAL PATCH TD SCH (10:20)
[2022-12-13] MEDS: SELENIUM SULFIDE 2.25% 180 ML SHAMPOO TP SCH (10:21)
[2022-12-13] MEDS: PRENATAL VITAMINS W/ FOLIC ACID TABLET (FP) PO SCH (10:21)
[2022-12-13] MEDS: METHOCARBAMOL 500 MG TABLET PO SCH ×4 (10:21→21:13)
[2022-12-13] MEDS: amLODIPine BESYLATE 5 MG TABLET (FP) PO SCH (10:21)
[2022-12-13] MEDS: LIDOCAINE 5% TOPICAL PATCH TP SCH (10:21)
[2022-12-13] MEDS: FAMOTIDINE 20 MG TABLET PO SCH (10:21)
[2022-12-13] MEDS: DULoxetine HCL 30 MG CAPSULE.DR PO SCH (10:21)
[2022-12-13] MEDS: hydrOXYzine PAMOATE 25 MG CAPSULE (FP) PO PRN (19:44)
[2022-12-13] MEDS: THIAMINE HCL 100 MG TABLET (FP) PO SCH (21:11)
[2022-12-13] MEDS: LIDOCAINE PATCH REMOVAL MC SCH (21:13)
[2022-12-13] MEDS: QUEtiapine FUMARATE 200 MG TABLET PO SCH (21:13)
[2022-12-13] MEDS: SUVOREXANT 15 MG TABLET PO PRN (21:13)
[2022-12-13] MEDS: MAG HYDROX/AL HYDROX/SIMETH 30 ML UNIT-DOSE CUP PO PRN (22:03)
[2022-12-14] MEDS: GABAPENTIN 400 MG CAPSULE PO SCH ×3 (06:51→21:03)
[2022-12-14] MEDS: NICOTINE POLACRILEX 4 MG GUM BUC PRN ×4 (06:51→21:06)
[2022-12-14] MEDS: BUPRENORPHINE/NALOXONE 8 MG/2 MG FILM PACKET SL SCH ×3 (06:51→23:26)
[2022-12-14] MEDS: QUEtiapine FUMARATE 50 MG TABLET PO SCH (07:15)
[2022-12-14] MEDS: ALBUTEROL SO4 HFA INHALER IH PRN (09:59)
[2022-12-14] MEDS: DULoxetine HCL 30 MG CAPSULE.DR PO SCH (10:00)
[2022-12-14] MEDS: LIDOCAINE 5% TOPICAL PATCH TP SCH (10:01)
[2022-12-14] MEDS: METHOCARBAMOL 500 MG TABLET PO SCH ×4 (10:01→21:05)
[2022-12-14] MEDS: FAMOTIDINE 20 MG TABLET PO SCH (10:01)
[2022-12-14] MEDS: NICOTINE 21 MG/24 HOURS TOPICAL PATCH TD SCH (10:01)
[2022-12-14] MEDS: amLODIPine BESYLATE 5 MG TABLET (FP) PO SCH (10:01)
[2022-12-14] MEDS: SELENIUM SULFIDE 2.25% 180 ML SHAMPOO TP SCH (10:02)
[2022-12-14] MEDS: PRENATAL VITAMINS W/ FOLIC ACID TABLET (FP) PO SCH (10:02)
[2022-12-14] MEDS: SUVOREXANT 20 MG TABLET PO PRN (21:01)
[2022-12-14] MEDS: QUEtiapine FUMARATE 200 MG TABLET PO SCH (21:03)
[2022-12-14] MEDS: THIAMINE HCL 100 MG TABLET (FP) PO SCH (21:03)
[2022-12-14] MEDS: MAG HYDROX/AL HYDROX/SIMETH 30 ML UNIT-DOSE CUP PO PRN (21:06)
[2022-12-14] MEDS: LIDOCAINE PATCH REMOVAL MC SCH (22:39)
[2022-12-15] MEDS: GABAPENTIN 400 MG CAPSULE PO SCH ×3 (06:43→21:05)
[2022-12-15] MEDS: BUPRENORPHINE/NALOXONE 8 MG/2 MG FILM PACKET SL SCH ×3 (06:45→21:06)
[2022-12-15] MEDS: QUEtiapine FUMARATE 50 MG TABLET PO SCH (07:06)
[2022-12-15] MEDS: amLODIPine BESYLATE 5 MG TABLET (FP) PO SCH (10:11)
[2022-12-15] MEDS: FAMOTIDINE 20 MG TABLET PO SCH (10:11)
[2022-12-15] MEDS: DULoxetine HCL 30 MG CAPSULE.DR PO SCH (10:11)
[2022-12-15] MEDS: METHOCARBAMOL 500 MG TABLET PO SCH ×4 (10:11→21:05)
[2022-12-15] MEDS: PRENATAL VITAMINS W/ FOLIC ACID TABLET (FP) PO SCH (10:11)
[2022-12-15] MEDS: NICOTINE 21 MG/24 HOURS TOPICAL PATCH TD SCH (10:12)
[2022-12-15] MEDS: LIDOCAINE 5% TOPICAL PATCH TP SCH (10:13)
[2022-12-15] MEDS: SELENIUM SULFIDE 2.25% 180 ML SHAMPOO TP SCH (10:14)
[2022-12-15] MEDS: guaiFENesin 200 MG/10 ML 10 ML UNIT-DOSE CUPS PO PRN (10:16)
[2022-12-15] MEDS: NICOTINE POLACRILEX 4 MG GUM BUC PRN ×2 (10:17→19:34)
[2022-12-15] MEDS: ALBUTEROL SO4 HFA INHALER IH PRN ×2 (12:59→19:34)
[2022-12-15] MEDS: SUVOREXANT 20 MG TABLET PO PRN (21:04)
[2022-12-15] MEDS: THIAMINE HCL 100 MG TABLET (FP) PO SCH (21:05)
[2022-12-15] MEDS: QUEtiapine FUMARATE 200 MG TABLET PO SCH (21:05)
[2022-12-15] MEDS: LIDOCAINE PATCH REMOVAL MC SCH (21:49)
[2022-12-16] MEDS: GABAPENTIN 400 MG CAPSULE PO SCH ×3 (06:22→21:09)
[2022-12-16] MEDS: ALBUTEROL SO4 HFA INHALER IH PRN ×2 (06:23→13:08)
[2022-12-16] MEDS: NICOTINE POLACRILEX 4 MG GUM BUC PRN ×3 (06:24→13:09)
[2022-12-16] MEDS: BUPRENORPHINE/NALOXONE 8 MG/2 MG FILM PACKET SL SCH ×3 (07:03→21:09)
[2022-12-16] MEDS: QUEtiapine FUMARATE 50 MG TABLET PO SCH (07:03)
[2022-12-16] MEDS: DULoxetine HCL 30 MG CAPSULE.DR PO SCH (09:28)
[2022-12-16] MEDS: LIDOCAINE 5% TOPICAL PATCH TP SCH (09:29)
[2022-12-16] MEDS: NICOTINE 21 MG/24 HOURS TOPICAL PATCH TD SCH (09:29)
[2022-12-16] MEDS: amLODIPine BESYLATE 5 MG TABLET (FP) PO SCH (09:29)
[2022-12-16] MEDS: METHOCARBAMOL 500 MG TABLET PO SCH ×4 (09:30→21:09)
[2022-12-16] MEDS: FAMOTIDINE 20 MG TABLET PO SCH (09:30)
[2022-12-16] MEDS: SELENIUM SULFIDE 2.25% 180 ML SHAMPOO TP SCH (09:30)
[2022-12-16] MEDS: PRENATAL VITAMINS W/ FOLIC ACID TABLET (FP) PO SCH (09:30)
[2022-12-16] MEDS: hydrOXYzine PAMOATE 25 MG CAPSULE (FP) PO PRN (10:54)
[2022-12-16] MEDS: ACETAMINOPHEN 325 MG TABLET (FP) PO PRN (10:55)
[2022-12-16] MEDS: THIAMINE HCL 100 MG TABLET (FP) PO SCH (21:08)
[2022-12-16] MEDS: SUVOREXANT 20 MG TABLET PO PRN (21:09)
[2022-12-16] MEDS: QUEtiapine FUMARATE 200 MG TABLET PO SCH (21:09)
[2022-12-16] MEDS: LIDOCAINE PATCH REMOVAL MC SCH (21:24)
[2022-12-17] MEDS: GABAPENTIN 400 MG CAPSULE PO SCH ×3 (06:11→21:08)
[2022-12-17] MEDS: ALBUTEROL SO4 HFA INHALER IH PRN ×2 (06:12→10:05)
[2022-12-17] MEDS: NICOTINE POLACRILEX 4 MG GUM BUC PRN ×5 (06:12→21:10)
[2022-12-17] MEDS: QUEtiapine FUMARATE 50 MG TABLET PO SCH (07:22)
[2022-12-17] MEDS: NICOTINE 21 MG/24 HOURS TOPICAL PATCH TD SCH (10:06)
[2022-12-17] MEDS: BUPRENORPHINE/NALOXONE 8 MG/2 MG FILM PACKET SL SCH ×2 (10:06→21:08)
[2022-12-17] MEDS: LIDOCAINE 5% TOPICAL PATCH TP SCH (10:06)
[2022-12-17] MEDS: amLODIPine BESYLATE 5 MG TABLET (FP) PO SCH (10:07)
[2022-12-17] MEDS: METHOCARBAMOL 500 MG TABLET PO SCH ×4 (10:07→21:09)
[2022-12-17] MEDS: FAMOTIDINE 20 MG TABLET PO SCH (10:07)
[2022-12-17] MEDS: DULoxetine HCL 30 MG CAPSULE.DR PO SCH (10:07)
[2022-12-17] MEDS: PRENATAL VITAMINS W/ FOLIC ACID TABLET (FP) PO SCH (10:08)
[2022-12-17] MEDS: SELENIUM SULFIDE 2.25% 180 ML SHAMPOO TP SCH (10:50)
[2022-12-17] MEDS: guaiFENesin 200 MG/10 ML 10 ML UNIT-DOSE CUPS PO PRN (13:12)
[2022-12-17] MEDS: IBUPROFEN 600 MG TABLET (FP) PO PRN (18:15)
[2022-12-17] MEDS: QUEtiapine FUMARATE 200 MG TABLET PO SCH (21:08)
[2022-12-17] MEDS: THIAMINE HCL 100 MG TABLET (FP) PO SCH (21:08)
[2022-12-17] MEDS: LIDOCAINE PATCH REMOVAL MC SCH (21:09)
[2022-12-17] MEDS: SUVOREXANT 20 MG TABLET PO PRN (21:09)
[2022-12-18] MEDS: GABAPENTIN 400 MG CAPSULE PO SCH ×3 (06:40→21:12)
[2022-12-18] MEDS: ALBUTEROL SO4 HFA INHALER IH PRN ×3 (06:41→21:11)
[2022-12-18] MEDS: NICOTINE POLACRILEX 4 MG GUM BUC PRN ×4 (06:42→21:16)
[2022-12-18] MEDS: QUEtiapine FUMARATE 25 MG TABLET PO SCH (07:28)
[2022-12-18] MEDS: NICOTINE 21 MG/24 HOURS TOPICAL PATCH TD SCH (09:54)
[2022-12-18] MEDS: BUPRENORPHINE/NALOXONE 8 MG/2 MG FILM PACKET SL SCH ×2 (09:54→21:12)
[2022-12-18] MEDS: LIDOCAINE 5% TOPICAL PATCH TP SCH (09:54)
[2022-12-18] MEDS: METHOCARBAMOL 500 MG TABLET PO SCH ×4 (09:55→21:12)
[2022-12-18] MEDS: FAMOTIDINE 20 MG TABLET PO SCH (09:55)
[2022-12-18] MEDS: DULoxetine HCL 30 MG CAPSULE.DR PO SCH (09:55)
[2022-12-18] MEDS: amLODIPine BESYLATE 5 MG TABLET (FP) PO SCH (09:55)
[2022-12-18] MEDS: PRENATAL VITAMINS W/ FOLIC ACID TABLET (FP) PO SCH (09:55)
[2022-12-18] MEDS: QUEtiapine FUMARATE 200 MG TABLET PO SCH (21:12)
[2022-12-18] MEDS: THIAMINE HCL 100 MG TABLET (FP) PO SCH (21:13)
[2022-12-18] MEDS: LIDOCAINE PATCH REMOVAL MC SCH (21:13)
[2022-12-18] MEDS: guaiFENesin 200 MG/10 ML 10 ML UNIT-DOSE CUPS PO PRN (21:16)
[2022-12-18] MEDS: SUVOREXANT 20 MG TABLET PO PRN (21:39)
[2022-12-19] MEDS: ALBUTEROL SO4 HFA INHALER IH PRN ×3 (06:20→21:04)
[2022-12-19] MEDS: GABAPENTIN 400 MG CAPSULE PO SCH ×3 (06:21→21:05)
[2022-12-19] MEDS: QUEtiapine FUMARATE 25 MG TABLET PO SCH (07:00)
[2022-12-19] MEDS: NICOTINE POLACRILEX 4 MG GUM BUC PRN ×2 (09:46→13:52)
[2022-12-19] MEDS: METHOCARBAMOL 500 MG TABLET PO SCH ×4 (09:47→21:05)
[2022-12-19] MEDS: DULoxetine HCL 30 MG CAPSULE.DR PO SCH (09:47)
[2022-12-19] MEDS: amLODIPine BESYLATE 5 MG TABLET (FP) PO SCH (09:47)
[2022-12-19] MEDS: FAMOTIDINE 20 MG TABLET PO SCH (09:47)
[2022-12-19] MEDS: NICOTINE 21 MG/24 HOURS TOPICAL PATCH TD SCH (09:47)
[2022-12-19] MEDS: BUPRENORPHINE/NALOXONE 8 MG/2 MG FILM PACKET SL SCH ×2 (09:47→21:05)
[2022-12-19] MEDS: LIDOCAINE 5% TOPICAL PATCH TP SCH (09:47)
[2022-12-19] MEDS: PRENATAL VITAMINS W/ FOLIC ACID TABLET (FP) PO SCH (09:48)
[2022-12-19] MEDS: THIAMINE HCL 100 MG TABLET (FP) PO SCH (21:04)
[2022-12-19] MEDS: QUEtiapine FUMARATE 200 MG TABLET PO SCH (21:05)
[2022-12-19] MEDS: SUVOREXANT 20 MG TABLET PO PRN (21:06)
[2022-12-19] MEDS: LIDOCAINE PATCH REMOVAL MC SCH (22:34)
[2022-12-20] MEDS: GABAPENTIN 400 MG CAPSULE PO SCH ×3 (06:06→21:28)
[2022-12-20] MEDS: ALBUTEROL SO4 HFA INHALER IH PRN ×2 (06:06→09:56)
[2022-12-20] MEDS: NICOTINE POLACRILEX 4 MG GUM BUC PRN ×3 (06:06→13:03)
[2022-12-20] MEDS: QUEtiapine FUMARATE 25 MG TABLET PO SCH (07:19)
[2022-12-20] MEDS: NICOTINE 21 MG/24 HOURS TOPICAL PATCH TD SCH (09:56)
[2022-12-20] MEDS: LIDOCAINE 5% TOPICAL PATCH TP SCH (09:56)
[2022-12-20] MEDS: DULoxetine HCL 30 MG CAPSULE.DR PO SCH (09:56)
[2022-12-20] MEDS: METHOCARBAMOL 500 MG TABLET PO SCH ×4 (09:56→21:28)
[2022-12-20] MEDS: PRENATAL VITAMINS W/ FOLIC ACID TABLET (FP) PO SCH (09:57)
[2022-12-20] MEDS: FAMOTIDINE 20 MG TABLET PO SCH (09:57)
[2022-12-20] MEDS: BUPRENORPHINE/NALOXONE 8 MG/2 MG FILM PACKET SL SCH ×2 (09:57→21:28)
[2022-12-20] MEDS: amLODIPine BESYLATE 5 MG TABLET (FP) PO SCH (09:57)
[2022-12-20] MEDS: MAG HYDROX/AL HYDROX/SIMETH 30 ML UNIT-DOSE CUP PO PRN (11:27)
[2022-12-20] MEDS: THIAMINE HCL 100 MG TABLET (FP) PO SCH (21:26)
[2022-12-20] MEDS: SUVOREXANT 20 MG TABLET PO PRN (21:28)
[2022-12-20] MEDS: LIDOCAINE PATCH REMOVAL MC SCH (21:28)
[2022-12-20] MEDS: QUEtiapine FUMARATE 200 MG TABLET PO SCH (21:28)
[2022-12-20] MEDS: guaiFENesin 200 MG/10 ML 10 ML UNIT-DOSE CUPS PO PRN (21:29)
[2022-12-21] MEDS: GABAPENTIN 400 MG CAPSULE PO SCH ×3 (06:11→21:33)
[2022-12-21] MEDS: NICOTINE POLACRILEX 4 MG GUM BUC PRN ×3 (06:11→21:36)
[2022-12-21] MEDS: IBUPROFEN 400 MG TABLET (FP) PO PRN (06:12)
[2022-12-21] MEDS: ALBUTEROL SO4 HFA INHALER IH PRN (06:12)
[2022-12-21] MEDS: QUEtiapine FUMARATE 25 MG TABLET PO SCH (07:38)
[2022-12-21] MEDS: LIDOCAINE 5% TOPICAL PATCH TP SCH (09:24)
[2022-12-21] MEDS: amLODIPine BESYLATE 5 MG TABLET (FP) PO SCH (09:26)
[2022-12-21] MEDS: METHOCARBAMOL 500 MG TABLET PO SCH ×4 (09:26→21:33)
[2022-12-21] MEDS: PRENATAL VITAMINS W/ FOLIC ACID TABLET (FP) PO SCH (09:26)
[2022-12-21] MEDS: BUPRENORPHINE/NALOXONE 8 MG/2 MG FILM PACKET SL SCH ×2 (09:26→21:34)
[2022-12-21] MEDS: DULoxetine HCL 30 MG CAPSULE.DR PO SCH (09:26)
[2022-12-21] MEDS: FAMOTIDINE 20 MG TABLET PO SCH (09:26)
[2022-12-21] MEDS: NICOTINE 21 MG/24 HOURS TOPICAL PATCH TD SCH (09:26)
[2022-12-21] MEDS: ACETAMINOPHEN 325 MG TABLET (FP) PO PRN (09:27)
[2022-12-21 10:39] LABS: INR 0.97 (0.83-1.09); PROTHROMBIN TIME (PATIENT) 11.2 SEC (9.7-13.0)
[2022-12-21] MEDS: IBUPROFEN 600 MG TABLET (FP) PO PRN (13:57)
[2022-12-21] MEDS: METHYL SALICYLATE/MENTHOL OINT 30 GM TUBE TP SCH ×2 (14:20→21:46)
[2022-12-21] MEDS: SUVOREXANT 20 MG TABLET PO PRN (21:32)
[2022-12-21] MEDS: THIAMINE HCL 100 MG TABLET (FP) PO SCH (21:33)
[2022-12-21] MEDS: QUEtiapine FUMARATE 200 MG TABLET PO SCH (21:33)
[2022-12-21] MEDS: guaiFENesin 200 MG/10 ML 10 ML UNIT-DOSE CUPS PO PRN (21:33)
[2022-12-21] MEDS: LIDOCAINE PATCH REMOVAL MC SCH (21:46)
[2022-12-22] MEDS: guaiFENesin 200 MG/10 ML 10 ML UNIT-DOSE CUPS PO PRN ×2 (04:00→21:25)
[2022-12-22] MEDS: ALBUTEROL SO4 HFA INHALER IH PRN ×2 (06:22→21:26)
[2022-12-22] MEDS: NICOTINE POLACRILEX 4 MG GUM BUC PRN ×4 (06:22→21:28)
[2022-12-22] MEDS: GABAPENTIN 400 MG CAPSULE PO SCH ×3 (06:22→21:25)
[2022-12-22 06:50] VITALS: TEMP 97.8
[2022-12-22] MEDS: QUEtiapine FUMARATE 25 MG TABLET PO SCH (07:06)
[2022-12-22] MEDS: METHYL SALICYLATE/MENTHOL OINT 30 GM TUBE TP SCH ×2 (09:42→22:00)
[2022-12-22] MEDS: DULoxetine HCL 30 MG CAPSULE.DR PO SCH (09:42)
[2022-12-22] MEDS: LIDOCAINE 5% TOPICAL PATCH TP SCH (09:43)
[2022-12-22] MEDS: NICOTINE 21 MG/24 HOURS TOPICAL PATCH TD SCH (09:43)
[2022-12-22] MEDS: METHOCARBAMOL 500 MG TABLET PO SCH ×4 (09:44→21:25)
[2022-12-22] MEDS: PRENATAL VITAMINS W/ FOLIC ACID TABLET (FP) PO SCH (09:44)
[2022-12-22] MEDS: BUPRENORPHINE/NALOXONE 8 MG/2 MG FILM PACKET SL SCH ×2 (09:44→21:25)
[2022-12-22] MEDS: amLODIPine BESYLATE 5 MG TABLET (FP) PO SCH (09:44)
[2022-12-22] MEDS: FAMOTIDINE 20 MG TABLET PO SCH (09:44)
[2022-12-22] MEDS: SUVOREXANT 20 MG TABLET PO PRN (21:25)
[2022-12-22] MEDS: QUEtiapine FUMARATE 200 MG TABLET PO SCH (21:25)
[2022-12-22] MEDS: THIAMINE HCL 100 MG TABLET (FP) PO SCH (21:25)
[2022-12-22] MEDS: LIDOCAINE PATCH REMOVAL MC SCH (22:00)
[2022-12-23] MEDS: guaiFENesin 200 MG/10 ML 10 ML UNIT-DOSE CUPS PO PRN (06:15)
[2022-12-23] MEDS: ALBUTEROL SO4 HFA INHALER IH PRN (06:15)
[2022-12-23] MEDS: GABAPENTIN 400 MG CAPSULE PO SCH (06:15)
[2022-12-23 06:36] VITALS: RESP 16
[2022-12-23] MEDS: IBUPROFEN 400 MG TABLET (FP) PO PRN (06:52)
[2022-12-23] MEDS: QUEtiapine FUMARATE 25 MG TABLET PO SCH (07:07)
[2022-12-23 09:03] VITALS: BP 124/78; PULSE 99
[2022-12-23] MEDS: NICOTINE 21 MG/24 HOURS TOPICAL PATCH TD SCH (09:12)
[2022-12-23] MEDS: METHYL SALICYLATE/MENTHOL OINT 30 GM TUBE TP SCH (09:12)
[2022-12-23] MEDS: BUPRENORPHINE/NALOXONE 8 MG/2 MG FILM PACKET SL SCH (09:13)
[2022-12-23] MEDS: PRENATAL VITAMINS W/ FOLIC ACID TABLET (FP) PO SCH (09:13)
[2022-12-23] MEDS: FAMOTIDINE 20 MG TABLET PO SCH (09:13)
[2022-12-23] MEDS: METHOCARBAMOL 500 MG TABLET PO SCH (09:13)
[2022-12-23] MEDS: amLODIPine BESYLATE 5 MG TABLET (FP) PO SCH (09:13)
[2022-12-23] MEDS: DULoxetine HCL 30 MG CAPSULE.DR PO SCH (09:13)
[2022-12-23] MEDS: LIDOCAINE 5% TOPICAL PATCH TP SCH (09:14)
== END 2022-12-23 09:34 | disposition home or self-care (01) | DRG 772 ==
LOC: YASAS 14:00 → Y3E 14:02
PROVIDERS: ADMIT Allergy & Immunology; ATTEND Psychiatry & Neurology Pain Medicine
PROC: HZ42ZZZ Group Counseling for Substance Abuse Treatment, Cognitive-Behavioral (ICD-10-PCS; principal; 2022-11-29)
DX: F11.20 Opioid dependence, uncomplicated (principal); F15.20 Other stimulant dependence, uncomplicated; F12.20 Cannabis dependence, uncomplicated; F17.210 Nicotine dependence, cigarettes, uncomplicated; F32.A Depression, unspecified; J45.901 Unspecified asthma with (acute) exacerbation; I10 Essential (primary) hypertension; K21.9 Gastro-esophageal reflux disease without esophagitis; I36.1 Nonrheumatic tricuspid (valve) insufficiency; G62.9 Polyneuropathy, unspecified; M53.3 Sacrococcygeal disorders, not elsewhere classified; M54.50 Low back pain, unspecified; Z87.01 Personal history of pneumonia (recurrent)
CPT/HCPCS: 36415; 71045-TC-FY; 85610; 86803; 87389; 87522; 90677

== ENCOUNTER 2024-08-24 16:57 | Inpatient (IN) | payer OTHER ==
[2024-08-24 17:10] VITALS: BMI 32.2
[2024-08-24] MEDS ORDERED: LOPERAMIDE HCL 2 MG CAPSULE PO PRN (17:41)
[2024-08-24] MEDS ORDERED: ONDANSETRON *ODT* 4 MG TABLET SL PRN (17:41)
[2024-08-24] MEDS ORDERED: NALOXONE (NARCAN) HCL 4 MG/0.1 ML SPRAY NS PRN (17:41)
[2024-08-24] MEDS ORDERED: IBUPROFEN 600 MG TABLET (FP) PO PRN (17:41)
[2024-08-24] MEDS ORDERED: POLYETHYLENE GLYCOL (HEALTHYLAX) 3350 17 GM PACKET PO PRN (17:41)
[2024-08-24] MEDS ORDERED: BISMUTH SUBSALICYLATE 524 MG/30 ML PO PRN (17:41)
[2024-08-24] MEDS ORDERED: P-EPHED 60MG/TRIPROLIDI 2.5MG TABLET PO PRN (17:41)
[2024-08-24] MEDS ORDERED: guaiFENesin 600 MG TABLET.ER (FP) PO PRN (17:41)
[2024-08-24] MEDS ORDERED: MAGNESIUM HYDROX 2400MG/30ML ORAL SUSPENSION 30 ML CUP PO PRN (17:41)
[2024-08-24] MEDS ORDERED: BENZONATATE 200 MG CAPSULE PO PRN (17:41)
[2024-08-24] MEDS ORDERED: ACETAMINOPHEN 325 MG TABLET (FP) PO PRN (17:41)
[2024-08-24] MEDS ORDERED: NICOTINE POLACRILEX 2 MG LOZENGE BC PRN (17:41)
[2024-08-24] MEDS ORDERED: IBUPROFEN 400 MG TABLET (FP) PO PRN (17:41)
[2024-08-24] MEDS ORDERED: BENZOCAINE/MENTHOL (CHLORASEPTIC ) LOZENGE MM PRN (17:41)
[2024-08-24] MEDS ORDERED: DICYCLOMINE HCL 10 MG CAPSULE PO PRN (17:41)
[2024-08-24] MEDS ORDERED: cloNIDine HCL 0.1 MG TABLET PO PRN (17:48)
[2024-08-24] MEDS: MELATONIN 5 MG TABLETS PO SCH (22:29)
[2024-08-24] MEDS: THIAMINE 100 MG TABLET PO SCH (22:29)
[2024-08-24] MEDS: MAG HYDROX/AL HYDROX/SIMETH 30 ML UNIT-DOSE CUP PO PRN (22:30)
[2024-08-25] MEDS: methaDONE HCL 10 MG TABLET (FOR DETOX USE ONLY) PO ONE (09:15)
[2024-08-25] MEDS: FAMOTIDINE 20 MG TABLET PO SCH (09:17)
[2024-08-25] MEDS: PRENATAL VITAMINS W/ FOLIC ACID TABLET (FP) PO SCH (09:17)
[2024-08-25] MEDS: amLODIPine BESYLATE 5 MG TABLET (FP) PO SCH (09:17)
[2024-08-25 09:42] LABS: POTASSIUM 4.1 mmol/L (3.5-5.1)
[2024-08-25 09:47] LABS: ALBUMIN 3.7 g/dl (3.4-5.0); CALCIUM 9.4 mg/dL (8.5-10.1)
[2024-08-25 09:51] LABS: CREATININE 0.8 mg/dL (0.55-1.3)
[2024-08-25 09:52] LABS: BILIRUBIN,TOTAL 0.4 mg/dL (0.2-1); TOT PROT 6.7 g/dl (6.4-8.2)
[2024-08-25 09:53] LABS: HEMOGLOBIN 12.7 g/dL (13.7-17.5); MCHC 33.4 g/dl (32.3-36.5); MEAN PLT VOLUME 12.1 fl (9.4-12.4); PLATELET COUNT 195 x10^3/uL (163-337); RDW 12.8 % (12.0-15.6)
[2024-08-25] MEDS ORDERED: cloNIDine HCL 0.1 MG TABLET PO PRN (10:32)
[2024-08-25] MEDS: methaDONE HCL 10 MG TABLET PO ONE (11:12)
[2024-08-25] MEDS: NICOTINE POLACRILEX 2 MG GUM BUC PRN (12:12)
[2024-08-25 12:28] LABS: HIV INTERPRETATION NEGATIVE (NEGATIVE)
[2024-08-25 12:39] LABS: HCV DIAGNOSTIC IN-HOUSE W/RFLX REACTIVE (NONREACTIVE)
[2024-08-25] MEDS: QUEtiapine FUMARATE 100 MG TABLET (FP) PO SCH (22:08)
[2024-08-26] MEDS: methaDONE HCL 40 MG DISPERSABLE TABLET PO ONE (09:19)
[2024-08-26] MEDS: GABAPENTIN 300 MG CAPSULE PO SCH (14:39)
[2024-08-27] MEDS: methaDONE HCL 40 MG DISPERSABLE TABLET PO ONE (09:34)
[2024-08-27] MEDS ORDERED: methaDONE HCL 10 MG TABLET (FOR DETOX USE ONLY) PO ONE (10:00)
[2024-08-27] MEDS ORDERED: methaDONE 40 MG, methaDONE 10 MG PO ONE (10:00)
[2024-08-27] MEDS ORDERED: methaDONE HCL 40 MG DISPERSABLE TABLET PO ONE ×2 (10:00)
[2024-08-28] MEDS ORDERED: methaDONE HCL 40 MG DISPERSABLE TABLET PO SCH (06:00)
[2024-08-28] MEDS: methaDONE HCL 40 MG DISPERSABLE TABLET PO ONE (09:26)
[2024-08-28] MEDS: ALBUTEROL SO4 HFA INHALER IH PRN (09:30)
[2024-08-28] MEDS ORDERED: methaDONE 40 MG, methaDONE 10 MG PO SCH (10:00)
[2024-08-28 20:50] VITALS: RESP 17
[2024-08-29 06:22] VITALS: BP 119/84; PULSE 60; TEMP 97.8
[2024-08-29] MEDS ORDERED: methaDONE HCL 10 MG TABLET (FOR DETOX USE ONLY) PO ONE (10:00)
== END 2024-08-29 08:30 | disposition home or self-care (01) | DRG 773 ==
LOC: YASAS 16:57 → Y6N 18:16
PROVIDERS: ADMIT Family Medicine; ATTEND Family Medicine Addiction Medicine
PROC: HZ2ZZZZ Detoxification Services for Substance Abuse Treatment (ICD-10-PCS; principal; 2024-08-24)
DX: F11.23 Opioid dependence with withdrawal (principal); F14.20 Cocaine dependence, uncomplicated; F17.210 Nicotine dependence, cigarettes, uncomplicated; F19.282 Other psychoactive substance dependence with psychoactive substance-induced sleep disorder; F19.24 Other psychoactive substance dependence with psychoactive substance-induced mood disorder; G62.9 Polyneuropathy, unspecified; I36.1 Nonrheumatic tricuspid (valve) insufficiency; I10 Essential (primary) hypertension; J45.909 Unspecified asthma, uncomplicated; K21.9 Gastro-esophageal reflux disease without esophagitis; Z59.00 Homelessness unspecified
CPT/HCPCS: 36415; 80053; 80305; 80307; 85027; 86780; 86803; 87389; 87522; 93005; 93010